=== PATIENT | female | born 2000 | race Caucasian/White ===

== ENCOUNTER 2022-08-19 17:06 | Outpatient (OUT) | payer OTHER, BC, SELFPAY ==
--- NOTE | 2022-08-19 17:16 | XR_ITS ---
The [address] [address] Patient Name: STEVE BOUCHER MRN: [id number] date: 2000 Sex: F Assigned Patient Location: [facility] Current Patient Location: [facility] Accession/Order Number: [id number] Exam Date: 08/19/2022 17:25 Report Date: 08/19/2022 18:47 At the request of: BALAJI THOMPSON Procedure: XR foot LT min 3V EXAM: XR foot LT min 3V HISTORY: Left foot pain M79.672 . Injury in January 2022. COMPARISON: None. TECHNIQUE: 3 views of the left foot were obtained. FINDINGS: There is no evidence of an acute fracture or dislocation. The joint spaces are intact. No significant focal osseous abnormality is identified. No abnormal soft tissue calcification is present. No radiopaque foreign body is identified. XR/XR foot LT min 3V IMPRESSION: No acute fracture or dislocation. The joint spaces are intact and no apparent degenerative changes are present. Electronically authenticated by: FRANCES BRYAN Date: 08/19/2022 18:47
== END 2022-08-19 17:07 | disposition home or self-care (01) ==
PROVIDERS: PCP Family Medicine; Visit Provider Nurse Practitioner Family
DX: M79.672 Pain in left foot (principal)
CPT/HCPCS: 73630

== ENCOUNTER 2023-01-01 08:24 | Outpatient (OUT) | payer OTHER, BC, SELFPAY ==
--- NOTE | 2023-01-01 08:33 | MR_ITS ---
The [place] [id number] Patient Name: STEVE BOUCHER MRN: [id number] date: 2000 Sex: F Assigned Patient Location: MRI Current Patient Location: MRI Accession/Order Number: [id number] Exam Date: 01/01/2023 08:45 Report Date: 01/01/2023 10:20 At the request of: RANDALL MA Procedure: MR ankle LT wo con MR ankle LT wo con, 01/01/2023 8:45 AM EST INDICATION: Achilles Tendon Rupture Left S86.012A COMPARISON: X-ray of the left foot dated 08/19/2022 TECHNIQUE: Multiplanar and multisequential MR images of the left were obtained without contrast . FINDINGS: Muscles and tendons: The flexor and extensor tendons and muscles are unremarkable. No abnormality of the peroneal tendons is noted. Achilles tendon is unremarkable. Bone: There is no bone marrow edema. No osseus lesion is noted. Sinus Tarsi: No abnormality of sinus Tarsi is noted. Plantar fascia: The plantar fascia is unremarkable. Ligaments: The deep and superficial portions of deltoid are unremarkable. The lateral ligaments are unremarkable. The visualized portion of Lisfranc ligament is unremarkable. There is normal intra-articular joint effusion. No soft tissue abnormality is noted. MR/MR ankle LT wo con IMPRESSION: Normal MRI of the left ankle. Electronically authenticated by: JERRY ALMANZAR Date: 01/01/2023 10:20
== END 2023-01-01 08:25 | disposition home or self-care (01) ==
LOC: MRI 08:26
PROVIDERS: PCP Family Medicine
DX: S86.012A Strain of left Achilles tendon, initial encounter (principal)
CPT/HCPCS: 73721

== ENCOUNTER 2023-01-16 07:00 | Outpatient (RCR) | payer OTHER, BC, SELFPAY | END 2023-02-09 07:00 | disposition home or self-care (01) | LOC: PT 07:00 | PROVIDERS: PCP Family Medicine | DX: M76.62 Achilles tendinitis, left leg (principal); M24.572 Contracture, left ankle | CPT/HCPCS: 97110; 97112; 97140; 97161 ==

== ENCOUNTER 2023-02-10 10:04 | Outpatient (RCR) | payer OTHER, SELFPAY | END 2023-04-12 17:03 | disposition home or self-care (01) | LOC: PT 10:04 | PROVIDERS: PCP Family Medicine | DX: M25.572 Pain in left ankle and joints of left foot (principal); M76.62 Achilles tendinitis, left leg; M24.572 Contracture, left ankle | CPT/HCPCS: 20560; 97112; 97140 ==

== ENCOUNTER 2024-08-30 19:37 | Outpatient (REF) | payer OTHER, SELFPAY ==
--- OUTSIDE RECORDS SUMMARY | 2024-08-30 19:42 | XMS_ITS | CCD ---
Author Organization [facility] Care Team Providers Care Business Development Name Role Phone Marry Justin Primary Care Physician Pratibha Jaeger Attending Unavailable Marry Justin Attending Guillermina vailable Marry Justin Attending Guillermina vailable Marry Justin Attending Guillermina vailable Marry Justin Attending Guillermina vailable Pratibha Jaeger Attending Unavailable Pratibha Jaeger Admitting Unavailable Pratibha Jaeger Attending Unavailable Pratibha Jaeger Admitting Unavailable Pratibha Jaeger Attending Unavailable DR TIRSO MORENO Admitting Unavailable JOSH, DR CHAHAL Consulting Unavailable JOSH, DR CHAHAL Attending Unavailable DR CHAUNCEY PAL Consulting Unavailable JOSH, DR CHAHAL Attending Unavailable JOSH, DR CHAHAL Admitting Unavailable DR TIRSO MORENO Consulting Unavailable Iris MALIK, Padmini Hua Primary Care Provider [phone] TIRSO MORENO Attending Unavailable TIRSO MORENO Attending Unavailable Allergies Allergy Classification Reported Allergen(s) Allergy Type Date of Onset Reaction(s) Facility (7 sources) Amoxicillin; Translations: [amoxicillin] Drug Allergy 3 Weal (disorder), [facility] [place] (4 sources) Penicillins Drug Allergy 3 Unknown [facility] Medications Current Medications Medication Drug Class(es) Dates Sig (Normalized) Sig (Original) ethinyl estradiol 0.03 mg / norethindrone acetate 1.5 mg oral tablet (1 source) Estrogen Start: 04-21-2024 End: 04-21-2025 take 1 tablet by mouth once daily norethindrone ac-eth estradio (Carmela 1.30) 1.5-30 MG-MCG tablet tablet Indications: control counseling Take 1 tablet by mouth Daily 21 tablet 11 04/21/2024 04/21/2025 Active ferrous sulfate 325 mg oral tablet (4 sources) take 1 tablet by mouth at mealtime ferrous sulfate 325 (65 Fe) MG tablet Take 325 mg by mouth in the morning. Take with meals. Active Iron Chews (2 sources) Start: 02-16-2021 take 1 mg by mouth once daily Iron Chews mg, Oral, Daily, Refills(s) 0 Start Date: 02/16/21 Status: Ordered Magnesium (3 sources) take 1 capsule by mouth once daily Magnesium 400 MG capsule Take 400 mg by mouth Daily Active Completed/Discontinued Medications Medication Drug Class(es) Dates Sig (Normalized) Sig (Original) cephalexin 500 mg oral capsule (2 sources) Cephalosporin Antibacterial Start: 11-08-2021 take 1 capsule by mouth every eight hours cephalexin 500 mg Cap 21 EA, TAKE 1 CAPSULE BY MOUTH EVERY 8 HOURS FOR 7 DAYS, Refills(s) 0 Start Date: 11/08/21 Status: Ordered Start: 10-30-2021 End: 11-06-2021 take 1 tablet by mouth every eight hours cephalexin 500 mg oral tablet 500 mg = 1 tab(s), Oral, q8hr, X 7 day(s), # 21 tab(s), Refills(s) 0, Pharmacy: [facility]/pharmacy #[id number], 167.3, cm, 10/30/21 13:28:00 EDT, Height/Length Dosing, 73.7, kg, 10/30/21 13:28:00 EDT, Weight Dosing Start Date: 10/30/21 Stop Date: 11/06/21 Status: Ordered Ethinyl Estradiol / Ferrous fumarate / Norethindrone (7 sources) Estrogen Start: 10-20-2023 End: 02-23-2024 Carmela FE 1.5/30 1.5-30 MG-MCG tablet Indications: Uses control TAKE 1 TABLET BY MOUTH EVERY MORNING 28 tablet 12 10/20/2023 02/23/2024 Discontinued Start: 10-20-2023 Carmela FE 1.5/ 30 1.5-30 MG-MCG tablet Indications: Uses control TAKE 1 TABLET BY MOUTH EVERY MORNING 28 tablet 12 10/20/2023 Active Start: 02-16-2021.5 0 oral tablet Refill(s) 0 Start Date: 02/16/21 Status: Ordered norethindrone-et hinyl estradiol (03/01) 1-20 MG-MCG tablet Take 1 tablet by mouth Daily Active spironolactone 50 mg oral tablet (3 sources) Aldosterone Antagonist Start: 06-26-2023 End: 02-23-2024 spironolactone (Aldactone) 50 MG tablet 06/26/2023 02/23/2024 Discontinued sulfacetamide sodium 100 mg/ml topical lotion (3 sources) Sulfonamide Antibacterial Start: 03-18-2023 End: 02-23-2024 sulfacetamide suspension (Klaron) 10 % lotion topical APPLY A THIN LAYER TO FACE DAILY 03/18/2023 02/23/2024 Discontinued Problems Active Problems Problem Classification Problem Date Documented Da te Episodic/Chronic Genitourinary symptoms and ill-defined conditions (4 sources) Dysuria; Translations: [Dysuria] Onset: 10-30-2021 Episodic Menstrual disorders (4 sources) Irregular periods; Translations: [Irregular menstruation, unspecified] Onset: 08-15-2022 08-15-2022 Chronic Mycoses (2 sources) Mycosis; Translations: [Candidiasis, unspecified] 02-23-2024 Episodic Other female genital disorders (4 sources) Unspecified dyspareunia; Translations: [UNSPECIFIED DYSPAREUNIA] Onset: 12-06-2021 Chronic Other female genital disorders (4 sources) Pain in female genitalia on intercourse; Translations: [Unspecified dyspareunia] Onset: 08-15-2022 08-15-2022 Chronic Other nutritional; endocrine; and metabolic disorders (2 sources) Overweight in childhood 04-04-2021 Episodic Other upper respiratory disease (6 sources) Allergic rhinitis; Translations: [Allergic rhinitis, unspecified] Onset: 08-19-2022 03-02-2021 Chronic Otitis media and related conditions (2 sources) Acute right otitis media 03-02-2021 Episodic Unclassified (2 sources) Patient encounter status 04-04-2021 Urinary tract infections (3 sources) Urinary tract infectious disease; Translations: [Urinary tract infection, site not specified] Onset: 10-30-2021 Episodic Past or Other Problems Problem Classification Problem Date Documented Da te Episodic/Chronic Abdominal pain (8 sources) Pelvic and perineal pain; Translations: [Pain in pelvis] Onset: 01-31-2022 Episodic Other skin disorders (4 sources) Eruption; Translations: [Rash and other nonspecific skin eruption] Onset: 08-15-2022 08-15-2022 Episodic Results Test Name Value Interpretation Reference Range Facility US PELVISon 01-31-2022 US PELVIS EXAMINATION: US PELVIS HISTORY: Pelvic and perineal pain COMPARISON: No relevant comparison available. TECHNIQUE: Transabdominal and transvaginal sonographic examination. FINDINGS: UTERUS: Normal size and appearance. Uterus size: 7.1 x 2.1 x 4.4 cm ENDOMETRIUM: Normal homogeneous appearance. Endometrial thickness: 4 mm RIGHT OVARY: Normal size and appearance. Blood flow present within ovary on color Doppler. Ovary size: 3.1 x 1.4 x 2.7 cm LEFT OVARY: Normal size and appearance. Blood flow present within ovary on color Doppler. Ovary size: 3.0 x 1.0 x 3.1 cm CUL-DE-SAC: Unremarkable. No significant free fluid. BLADDER: Unremarkable. OTHER: None. IMPRESSION: 1. Normal pelvic ultrasound. Electronically authenticated by: CHAUNCEY PAL Date: 2022-01-31 17:36 Normal [facility] CHLAMYDIA/GONOCOCCUS LOUIE (SW AB/URINE/PAPon 12-11-2021 Chlamydia trachomatis, LOUIE Negative Normal Negative [facility] Comment on above: Performed By: #### C T/NGNA #### [facility] [address] [address] [address] Deneen Gregorio Neisseria gonorrhoeae, LOUIE Negative Normal Negative [facility] Comment on above: Performed By: #### C T/NGNA #### [facility] [address] [address] [address] Deneen Gregorio Ambulatory Visit Summaryon 1 Ambulatory Visit Summary BENSTEVE PINZON :2000 Visit Date:11/08/2021 Ambulatory Visit Instructions Your Diagnosis Urinary tract infection Tests Performed Urnls Dip Stick Auto w/o Microscopy POC 36418 Your Care Team Attending Physician - Marry Justin MD Primary Care Physician - Marry Justin MD This Is Your Medications List carbonyl iron (Iron Chews) cephalexin (cephalexin 500 mg Cap) ethinyl estradiol-norethindro ne ( oral tablet) Procedures Performed None. What to do next You Need to Schedule the Following Appointments Follow Up with Marry Justin MD When: Comments: Confirm next [facility] Where: Medications What How Much When Instructions New cephalexin (cephalexin 500 mg Cap) 21 EA, TAKE 1 CAPSULE BY MOUTH EVERY 8 HOURS FOR 7 DAYS Unchanged carbonyl iron (Iron Chews) Every day Unchanged ethinyl estradiol-norethindro ne ( oral tablet) Test Results Urnls Dip Stick Auto w/o Microscopy POC 89959 (11/08/2021) Bilirubin Urine Dipstick - Negative Blood Urine Dipstick - Negative Glucose Urine Dipstick - Negative Ketones Urine Dipstick - Negative Leukocytes Urine Dipstick - Negative Nitrite Urine Dipstick - Negative Protein Urine Dipstick - Negative Specific [place] Urine Dipstick - 1.015 Urine Appearance Urine Dipstick - Clear Urine Color Urine Dipstick - Light yellow Urobilinogen Urine Dipstick - Normal 0.2-1 EU/dl pH Urine Dipstick - 6.5 Medications and Immunizations Administered Not Given influenza virus vaccine, inactivated, Postpone due to refusal Allergies amoxicillin (Hives) Problems Ongoing - Any problem that you are currently receiving treatment for. Acute otitis media, right Allergic rhinitis Pediatric body mass index (BMI) of 85th percentile to less than 95th percentile for age Urinary tract infection Well adult exam Normal [facility] Pediatrics Office/Clinic Not janny 11-09-2021 Pediatrics Office/Clinic Note Chief Complaint patient in alone for recheck dysuria per patient is doing a lot better now History of Present Illness Steve is an 20-year-old who presents today for a recheck of dysuria. She was last seen on 10/30/2021. At that time, she was seen for a follow-up UTI. She was still having symptoms and stating it maria when she goes to the bathroom as well as painful intercourse. Later, she stated she had not had any sexual intercourse since her symptoms started 1 month ago. She endorses using condoms. There was no vomiting, back pain, hematuria, or abdominal pain. She was given a course of Keflex for 1 week at her last appointment due to continued symptoms. 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 She had 2 cultures recently on 10/23/2021. She had a positive culture for 35,000 cfu/ml Staphylococcus species, coagulase negative. This grew out to be Staphylococcus saprophyticus. No susceptibility was performed as the organism is susceptible to most agents. A repeat culture on 10/29/2021 showed 10,000 cfu/ml of the same growth, negative for chlamydia and gonorrhea. Today, the patient states she is feeling a lot better now. She started noticing improvement in her symptoms in 2 to 4 days. She completed her course of Keflex on Friday night, 11/05/2021. She denies dysuria, fever, or vomiting. She has not tried to be sexually active because she did not know what the effects would be from it. She states she is comfortable again. She states this was her first UTI and she approximately 2 months of pain. She is having normal bowel movements. Review of Systems CONSTITUTIONAL: Negative for growth problems, fatigue, unexplained fevers, and weight loss. E/N/T: Negative for apparent hearing deficits, chronic nasal congestion, dental problems, and speech problems. RESPIRATORY: Negative for chronic cough, dyspnea, and wheezing. GASTROINTESTINAL: Negative for abdominal pain, constipation, diarrhea, feeding/nutritional problems, and vomiting. GENITOURINARY: Positive for dysuria and increased urinary frequency that has significantly improved with cephalexin Physical Exam Vitals & Measurements T: 36.2 ?C(Temporal Artery) HR: 64(Peripheral) RR: 16 BP: 110/58 HT: 66 in HT: 167.3 cm WT: 73.7 kg WT: 162.14 lb BMI: 26.33 GENERAL: The patient is well developed, well nourished, in no apparent distress. E/N/T: Nose: normal nasal mucosa, septum, turbinates, and sinuses; Lips, Teeth and Gums: normal; Oropharynx: normal mucosa RESPIRATORY: normal respiratory rate and pattern with no distress; GASTROINTESTINAL: normal bowel sounds; no masses or tenderness; no organomegaly no abdominal or inguinal hernia; LYMPHATIC: No enlargement of cervical nodes NEURO: Normal gait. Procedure Urine negative for infection in office. Assessment/Plan An 20-year-old female here today for a recheck of UTI demonstrating improvement with the course of cephalexin. I did discuss ways to decrease the chance of UTI, especially when sexually active and also things that she can do when she starts noticing symptoms of pain and dysuria. I also discussed her negative test results with gonorrhea and chlamydia. She has not yet been so sexually active since the infection. This was her first UTI. 1. Urinary tract infection (N39.0: Urinary tract infection, site not specified) -- Resolved. Orders: Urnls Dip Stick Auto w/o Microscopy POC 55559 ATTESTATION: Documentation services were performed after patient or guardian consented to allow [employer] to record this visit. ROSSANA health and nutrition specialist and provider reviewed before signing. ROSSANA: Kodi Odell Follow-up With When Contact Information Margoth MALIK, Marry BAXTER Additional Instructions: Confirm next [facility] Problem List/Past Medical History Ongoing Acute otitis media, right Allergic rhinitis Dysuria Pediatric body mass index (BMI) of 85th percentile to less than 95th percentile for age Urinary tract infection Well adult exam Historical No qualifying data Procedure/Surgical History None. Medications cephalexin 500 mg Cap Iron Chews, Oral, Daily oral tablet Allergies amoxicillin (Hives) Social History Alcohol - No Risk, 03/02/2021 Tobacco - No Risk, 03/02/2021 Never (less than 100 in lifetime) Tobacco Use:. Never Smokeless Tobacco Use:., 10/30/2021 Family History Hypertension: Grandparent. Immunizations Vaccine Date Status Comments influenza virus vaccine, inactivated - Not Given Postpone due to refusal influenza virus vaccine, inactivated - Not Given Parent Or Guardian Refuses meningococcal conjugate vaccine 09/29/2020 Given meningococcal conjugate vaccine 09/29/2020 Recorded influenza virus vaccine, inactivated 12/16/2016 Recorded influenza virus vaccine, inactivated 12/15/2014 Recorded tetanus toxoid 04/05/2014 Recorded meningococcal conjugate vaccine 04/05/2014 Recorded influenza (more content not included)... Normal [facility] Coding Summary.on 11-05-2021 Coding Summary. CD:[id number] G h0bWw+PGhlYWQ+CA7MMAS wK24qdZYotE9SP8pSIG5Y LXVOEJULBU2LSS4pjZD5J EzyC2SaoiYz VacurYCmPM14WIb9OEZ7h QkrJMrymZ2blQCcP7w3Hu LgRG88aW80BAtlDINxNdG 3LjZpbjsgbWFy O8kwAfGubTQvAge+PHRhY mxlIHdpZHRoPScxMDAlJy YnnTkmWI2eKd9iBPEwCJT vbGxhcHNlOiBj w0vvQHWjLGupXU3zxRkpA 4MteVG1EMGll2f3Up69wH I+ZDVxHSV0aBynYKyqe64 7XgWhf3umYZR7 fOJxWBkeUTB7T90cg3K4P OPkIVEtKTD6pFK6fX6weJ eomfunL0XtsHFmWcV4DFP 4iAMisB8lnGth lcblrU6yVnk+D89RPH7QE JUABY8CJms8S6WdCwndfT I+NN98RTWcEB72sZBtdLD ly1zwsSp1BnKz DREnQHU0tTgeIReqf5LqH LLbY74plFTsk0P9RBIvaX vyvZUrLnCusLM7qP6jMJd nowrop3cmzxhj Cgybg4cyot02dK06G75bI RbxBXSwUDQ4DYPcECEluF nkyp9heR8uWr4+QNrrf4i bk8otkXd3RrJr UOIbtrKkiYzlSBP9e7SkS p98O5EfwKapp7KoYli6px 69zARpk1G5xGU2IVslXZH cjK7nAWexNjA9 ANMeVjQfhN81uZTuNZojT v1yjMnfhMjcVO9kBHRgdf qhYIJhaE3gPQNikJSnqGt bJM9oGJSmbnkc y527MpNhHHP0VHCdpIXiE 4CmwV2zNsBoZWYaJPNyU8 ZnpRFqXXrhF831VNzzAaD 9BOQjmfLpI0Uz PSSzuYbsEuR0z1Y7Zd9Sw 4SchqrdFNM9DIezNEA7Iz I9GyGjNzT2H3YkUap0KUF trWqrPC9uD4Hx GLEdwgxtidbhjVT8LSQkU NPfbF98bFMtARiePp1hg7 Z3l674OZKsVESvkD81Zq0 udDogMTBwdCBU zM2wsxulh9tcacxuYfQeV SNcEVx8SRx1NGPnuDbaBf MrRQN2OoI5RZS2lTWggJ8 bqIdcaxqekZ0d Oyc+V76ozC1kGQZ1HAM0q krtXOCjhoKsPW47GY08Q4 RyPjwvdGFibGU+PGRpdiB iqVidAO4gOrZe f5slw2FpXZqaG8KlYXYqP HrtLlo6BTQtROX5aXU7aD 2uURJxIHqvi2I9tAR6T1Q gwkJhqy9mu0hx WUMuRGkgZ40orUFua6K4S OBalKE0ZNHnvPjiPiFxdK 93Oyc+NROtsYerm6LkMad wy8sov1bqxAv7 YsAgLCRmmlXrgSjiLWI5a 3FjBf25V07qULtjCONnFV IqRGLaRGWqqLdwvv2iyU1 wIi8+PGNvbCB3 kTP1iB1wDFDtIfI0MUnkE 743OrCafFMiJcfge5imx1 olwBi2QtCaPEDrvlXyuYr iWWB7g4NwXf56 P76nNAeqYLGtVBXsZNKrS WDdjUgear1isC5rUz4+PC 1cm5gvfv67fG26qQW+PHR zVFN1pIojSJlh KUWjgP7wWYsbWuA6MGVrK vOubS11yFEoKTkiSw7tkH womRdkQX7tDCYneeqey72 2LjCsg1cpJZSn nAQhKKmgALA5G89nk6K0W EBbLXScBEC3cHU0rW5prS lnbjogbGVmdDsgdmVydGl zSDdfHCgsW529 IHRvcDsnPlBhdGllbnQgT sVnQOg9P1RoSzs3KBTlbZ bwDW0joQOmRQqrSf4mdOu qiRxhHJ6wAHSu ppany726YzFgo4hgCESne LGtWEiqQKG6T22xy6R4JG ScAGGuZIL1hHB3uG3tbPn nbjogbGVmdDsg jbGjhXazFNdmRFzkJ913Y HRvcDsnPkJpcnRoIERhdG U9ZC66BG00lQAil0N9iUG 9D8ZzVXTcgsng zllgxMR5KAHhEQPubA04Q l3wxOlaUa1fKBKlHSB1HU RpfWSaF7PebA2aIjKgAVW hAOByM8HafJZy QUsiV543GEvkRlW1KUExt dYzS5OgKQVklBndXrU9z6 L5Xl0MP6S5CN05HH62dLP iq4N6nYP6H6Af XFRfuumhdkoqsTY5XWUbQ RTopQ05Me0kdWhnKb9iDV YfFVP4CXUttZJpX4QczY2 yOiAjMDAwMDAw E5BdcWJtVMpaV948DYrkE gU6IXQpwrFnG2HnKXZejW akLrL1t5U6Kd1GOAo6LX3 0VY21qIQxf1N5 zTH9Y0CnLUUsmyajnjsxp PW6HOSeRYKndX01Ui1ndY juDp5aBLGjPYL6YNIqmDG bQ8BqzU0oOrKo FKZtOWOiR1OteJReGJcfO 671MVeuApK9KFRadrUzP0 XuHRBniXvpXkG9r2E7Ze6 QIDBkPW50FQI0 aTK5UM42WT67U2XtZpjav GFibGU+PHRhYmxlIHdpZH RoPScxMDAlJyBzdHlsZT0 lPw9xZNVeHMPw nZyipHDzCkInl0xkSUAwN OvsMQ9khBeyV2PbcEQ6NS Lol3r7Ea46R24oW6UugHR +QZSreVK0aEG0 tW1rMnHwYqX6BOnkH291L mMblXBzHsvhd3rgw9ucfC l5DhD9QTJrexYrkMsrMXT 3c7HlFp95K55z IHdpZHRoPSIxNSUiIHZhb Oronf6heJ8zYy4+PGNvbC V6kFY0mB0tStMeXhW6YZo qC750KnFbiDHh Qjuwr0wmq7zdeXf7ZbRxI NIglcHooWspATC4v3SkWs 25M9VuuNlfy1ClTdt3pk3 9pMOqg9J2zIN7 Q7ChWGLvkdxefYBjhOcjF Q7cAWVnvgurGRYhhD1gDQ HnE8d9FsVvIjW3UHhzA1T prfD5TBIpfTNs KAcxOJC7P41yi6A6EJOyJ YOeGYZ4wDT0zO9lqXurtc ogbGVmdDsgdmVydGljYWw aEXllM754VYMr yFvqWSYycN8fSEDceJScj WtoQY1kTXCvnhkjSxCMWM DHCS1cVT5MN6GPCwA2A8S fOcq5WGDwyQom OQ9sfVGdOTdbJc8ibGyyv EmjZO2zBIIlxfxzWHPpbP 4hBZBcpTKafHhlIO1mCQD giisul832SjVo MGR1VPFqdRCqK2FtbR4cE xCqBAXaEZZyM4YaiHPxEI kvV191QHpoRdQ8QCJwjzQ eC3LwUFWhgXsg UfA0k1T6Qj5fDV6fRX4uN NTxQB26DW83nUSaf0W8bC Y7O2SeEYRtjyanegaxiJH 5CZOhEYVvxR39 kKRtNNipIf3qo0W0t060H RTiWAXssY53Pw1otWumHP ZdaXHKiP8eqlibo9nyuee gIzAwMDAwMDt0 KZa5XNZcrJoxHiSvCLD4Z hZ9HVQ8uYKbkK7wbNhiko rgyI4tMhf+MTggWWVhcnM 8Z9UtXcw9HXYr gQtsFV3kaOVvPCnuXq1bq IuhuPybFV5wHNCkhdavHT FawE4xNTYnuOTozSckSF4 aTPXgflyus635 TgGuMIH4BSBarPFdC4Qzf N1vSbCkJZHqMUJtI0IxyT OsGKbrP142BXrhOoA9JIW hhqOhL9EbOLSi wUufZnF7e1D4Xh5XFE8jd RZ0R5FwQks3GQAvqPcvLR 6gsQUzRRflFt8bzDfdvGs aKW4vPIBmreyx CVWisD1wVQLghMAeaTfwN K9yKBEkpyrfx189WmQnHC W6IQFjnPOnS2FjwY2gOvW aOWEpGQVzZ7Mp aADzOMspO693OAxbMhA0P NRphgFrA0QpGFNshJybIw N6g6F7Sv5CbTLjWFQoUX1 4XL91ND45V1Dc PjwvdGFibGU+PHRhYmxlI HdpZHRoPScxMDAlJyBzdH nfGS7hGn3rEZRoLOPgtZy rkUFaNyAto6kd GRHzPDbwUZ0gdWuyI0Cyk OS9ATOhm7i2Tz63X66wB0 JvdXA+VXMckZC1cZX1bK0 fTxNoBhL8OTnu X888QkRydHYbHcoup0ebz 0sbhZo1WnIsPBZermJxyP afRLG4k4UvRf98Y30uDNm pZHRoPSIyMCUi KTTzlHlmfd0agV8oDi0+P KZlaWE7zGJ8nC4nOsByZm W9VWelA489CeAfoYTbIey mW76nP9QllPK+ JQWlWcm3TFBppRigSI8jr TCsVJuzZa1dRCF1YzYoWw ThRSarE9TqMQFnbqjolxn adYA2RPKfXCHa pU85Fd4wbSlpXo0iBEDtR FX0BTYttEYuY6JriR9sFz TmWBTiFIQpG4DlcORmGNq eJ587TFpoCtB0 DHCunrFoI5SnYZVmcUxuL aL9k0K8Ze7FoKoqlYOaJF 2iLkGmEOo1S4IiZvz0USF lwLabLQ3plKAu LHnhQw3akTgwtJxaNX8cD KRkuzrkt180UfFji6oiPY MpsLNzAXqoUFK1I89vz1F 3JJAzWNVjCAW8 aNC5eP1xjHrxzqdaiZEzb DsgdmVydGljYWwtYWxpZ2 81XCLdkXzgAoKKNmh5D4J bCce6WSYdqHbv GT6ivYQiRYdaSt4dkKzya NorBZ8pHQDqxkolt420Hm Hzh5ooZRPhwJCnELgnUER 1T02jr3A2QTJy UMVjILM1aJZ8jC0ieEtmy jogbGVmdDsgdmVydGljYW etWPxjE415BVWgwBmeMr1 USls8U3DoUlf1 LEFkvRbzPS6pzUMtOJplI o7aqMqzmXfvHT8eVQMbae mmo951QbXib5qoKDMgkWQ kRMwfOEX6B16o l1H4RFItVMWvNAG1aVI9t H8hdIldbarvdSBktXyfhq IedNllDXxwSYizU785JFN vcDsnPlBheWVy OjwvdGQ+EJ52gi02P7EeB bdbZwl8XQCeDJM0lZI2fN 3lFZBgWBoua3Z1jIZ6H9J kuqYzwu5ny6zg YXBz (more content not included)... Normal [facility] C Urineon 10-31-2021 Bacteria identified Cx Nom (U) Microbiology PROCEDURE: Urine Culture [R1] SOURCE: U CleanCatch BODY SITE: COLLECTED DATE/TIME: 10/29/2021 09:11 EDT RECEIVED DATE/TIME: 10/29/2021 10:11 EDT START DATE/TIME: 10/29/2021 10:11 EDT FREE TEXT SOURCE: Mil WEST, Pratibha Marroquin. Mil WEST, Pratibha Marroquin. FINAL REPORTS Final Report [] Verified Date/Time: 10/31/2021 11:04 EDT 10,000 cfu/ml Staphylococcus saprophyticus isolated. Susceptibility testing no longer performed. This organism susceptible to most agents used for UTI treatment per CLSI [id number]. Performing Locations R1: This test was performed at: [facility], [address] [place] [address], [id number] , , Normal [facility] Comment on above: Performed By: #### [id number] ####[address] [address] Chlamydia/Gonococcus, NAAon 10-31-2021 C. trachomatis rRNA LOUIE+probe Ql (Unsp spec) Negative Invalid Interpretation Code Negative [facility] Comment on above: Performed By: #### 1 [id number] ####[facility] [id number] [place] [id number] N. gonorrhoeae rRNA LOUIE+probe Ql (Unsp spec) Negative Invalid Interpretation Code Negative [facility] Comment on above: Result Comment: Perf ormed at: =G [facility] [address] [place] [id number] MD Ashley Guerra Performed By: #### 1 [id number] ####[address] [address] Patient Educationon 10-31-19 Patient Education Urology Dysuria Dysuria is pain or discomfort while urinating. The pain or discomfort may be felt in the part of your body that drains urine from the bladder (urethra) or in the surrounding tissue of the genitals. The pain may also be felt in the groin area, lower abdomen, or lower back. You may have to urinate frequently or have the sudden feeling that you have to urinate (urgency). Dysuria can affect both men and women, but it is more common in women. Dysuria can be caused by many different things, including: ? Urinary tract infection. ? Kidney stones or bladder stones. ? Certain sexually transmitted infections (STIs), such as chlamydia. ? Dehydration. ? Inflammation of the tissues of the vagina. ? Use of certain medicines. ? Use of certain soaps or scented products that cause irritation. Follow these instructions at home: General instructions ? Watch your condition for any changes. ? Urinate often. Avoid holding urine for long periods of time. ? After a bowel movement or urination, women should cleanse from front to back, using each tissue only once. ? Urinate after sexual intercourse. ? Keep all follow-up visits as told by your health care provider. This is important. ? If you had any tests done to find the cause of dysuria, it is up to you to get your test results. Ask your health care provider, or the department that is doing the test, when your results will be ready. Eating and drinking ? Drink enough fluid to keep your urine pale yellow. ? Avoid caffeine, tea, and alcohol. They can irritate the bladder and make dysuria worse. In men, alcohol may irritate the prostate. Medicines ? Take [id number] and prescription medicines only as told by your health care provider. ? If you were prescribed an antibiotic medicine, take it as told by your health care provider. Do not stop taking the antibiotic even if you start to feel better. Contact a health care provider if: ? You have a fever. ? You develop pain in your back or sides. ? You have nausea or vomiting. ? You have blood in your urine. ? You are not urinating as often as you usually do. Get help right away if: ? Your pain is severe and not relieved with medicines. ? You cannot eat or drink without vomiting. ? You are confused. ? You have a rapid heartbeat while at rest. ? You have shaking or chills. ? You feel extremely weak. Summary ? Dysuria is pain or discomfort while urinating. Many different conditions can lead to dysuria. ? If you have dysuria, you may have to urinate frequently or have the sudden feeling that you have to urinate (urgency). ? Watch your condition for any changes. Keep all follow-up visits as told by your health care provider. ? Make sure that you urinate often and drink enough fluid to keep your urine pale yellow. This information is not intended to replace advice given to you by your health care provider. Make sure you discuss any questions you have with your health care provider. Document Released: 10/25/2004 Document Revised: 01/09/2018 Document Reviewed: 11/13/2017 [employer] Patient Education ? 2019 [employer]. [facility] Pediatrics Office/Clinic Not janny 10-30-2021 Pediatrics Office/Clinic Note Chief Complaint Pt in office to f/u UTI. Pt still having symptoms. Pt says it maria when she goes and frequency also painful intercourse. Pt went to [facility] yesterday and gave a urine sample History of Present Illness For this visit the chief historian for this dependent patient is the patient themself. Steve Perez is an 20-year-old female who presents for recheck of dysuria. She was seen in office on 10/23/2021, noted that she had dysuria, increased frequency of urination and painful intercourse. The patient states that her symptoms have not had much improvement. She is still experiencing dysuria and increased urination. She notes she has not had any sexual intercourse since her symptoms started about 1 month ago. She does use condoms during sexual intercourse. She notes she did decrease her caffeine intake; however, it has not made a difference. She is eating and drinking well. She denies vomiting, back pain, hematuria, or abdominal pain. She states she has really heavy menstrual cycle, which is why she is on control. She notes she was waiting to get her results back before she makes an appointment to see her OBGYN, Dr. Moreno. Steve is allergic to AMOXICILLIN. She is currently taking iron chews, control, and Zyrtec as needed. She has no ongoing chronic health issues or no surgical history. Review of Systems CONSTITUTIONAL: Negative for growth problems, fatigue, unexplained fevers, and weight loss. E/N/T: Negative for apparent hearing deficits, chronic nasal congestion, dental problems, and speech problems. RESPIRATORY: Negative for chronic cough, dyspnea, exposure to tuberculosis, and wheezing. GASTROINTESTINAL: Negative for abdominal pain, constipation, diarrhea, feeding/nutritional problems, and vomiting. GENITOURINARY: Positive for dysuria and increased urinary frequency. Physical Exam Vitals & Measurements T: 36.3 ?C(Temporal Artery) HR: 78(Peripheral) RR: 18 BP: 108/72 HT: 66 in HT: 167.3 cm WT: 73.7 kg WT: 162.14 lb BMI: 26.33 GENERAL: The patient is well developed, well nourished, in no apparent distress. E/N/T: external auditory canals normal; Nose: normal nasal mucosa, septum, turbinates, and sinuses; Lips, Teeth and Gums: normal; Oropharynx: normal mucosa, palate, and posterior pharynx; RESPIRATORY: normal respiratory rate and pattern with no distress; normal breath sounds with no rales, rhonchi, wheezes or rubs; CARDIOVASCULAR: normal rate and rhythm without murmurs; normal S1 and S2 heart sounds with no S3, S4, rubs, or clicks;; GASTROINTESTINAL: normal bowel sounds; no masses or tenderness; no organomegaly no abdominal or inguinal hernia; LYMPHATIC: No enlargement of cervical nodes GENITOURINARY: No CVA tenderness on examination. Assessment/Plan 1. Dysuria (R30.0: Dysuria) Steve continues to have painful urination and increased urinary frequency. I did discuss with her the culture results showing a decrease in the amount of bacteria. Steve notes that she has been having these symptoms for ongoing for about a month now. Shared decision making offered to patient. I did discuss with her that we could trial an antibiotic; however, with the amount of bacteria in her urine, it is not necessarily needed. Steve notes that she is uncomfortable with her symptoms and wants to see if there is improvement with an antibiotic. I have prescribed Keflex to be given 1 tablet every 8 hours for 1 week. If she develops fever or worsening symptoms or any blood in the urine, I advised her to call our office. I would like to see her back in 1 week for a recheck of this. I discussed with her also that gonorrhea and chlamydia testing are pending. We discussed that if she continues to have painful intercourse, she would need to be seen by her OBGYN to potentially have a pelvic exam. Steve verbalized understanding. I advised her to continue to avoid excessive caffeine intake and to drink plenty of water to stay hydrated. Ordered: cephalexin, 500 mg = 1 tab(s), Oral, q8hr, X 7 day(s), # 21 tab(s), Refills(s) 0, Pharmacy: [facility]/pharmacy #[id number], 167.3, cm, 10/30/21 13:28:00 EDT, Height/Length Dosing, 73.7, kg, 10/30/21 13:28:00 EDT, Weight Dosing Urine Culture 2. Urinary tract infection (N39.0: Urinary tract infection, site not specified) See problem #1. Ordered: cephalexin, 500 mg = 1 tab(s), Oral, q8hr, X 7 day(s), # 21 tab(s), Refills(s) 0, Pharmacy: [facility]/pharmacy #[id number], 167.3, cm, 10/30/21 13:28:00 EDT, Height/Length Dosing, 73.7, kg, 10/30/21 13:28:00 EDT, Weight Dosing ATTESTATION Documentation services were performed after patient or guardian consented to allow Yan Kenrick Mckinney to record this visit. ROSSANA health and nutrition specialist and provider reviewed before signing. ROSSANA: Alexia Cain Follow-up With When Contact Information Margoth MALIK, Marry BAXTER In 1 week Additional Instructions: recheck dysuria Patient Education Dysuria Problem List/Past Medical History Ongoing Acute otitis media, right Allergi (more content not included)... Normal [facility] Consent for Treatmenton 10-11 Consent for Treatment [id number]:[id number] Normal [facility] C Urineon 10-25-2021 Bacteria identified Cx Nom (U) Microbiology PROCEDURE: Urine Culture [R1] SOURCE: U Random BODY SITE: COLLECTED DATE/TIME: 10/23/2021 13:48 EDT RECEIVED DATE/TIME: 10/23/2021 15:41 EDT START DATE/TIME: 10/23/2021 15:41 EDT FREE TEXT SOURCE: Pratibha Salazar. Mil WEST, Pratibha Marroquin. FINAL REPORTS Final Report [] Verified Date/Time: 10/25/2021 16:37 EDT 35,000 cfu/ml Staphylococcus saprophyticus Susceptibility testing no longer performed. This organism susceptible to most agents used for UTI treatment per CLSI R808-K93. Performing Locations R1: This test was performed at: [facility], [address] [place] [address], [facility] , , [facility] Comment on above: Performed By: #### [id number] ####[facility] [id number] [place] [address] Coding Summary.on 10-24-2021 Coding Summary. CD:[id number] G h0bWw+PGhlYWQ+LD5FYYU zX88neJZgnJ4GR7bGUQ3P RGTYMLFSKC5LAO0drQR9X IajN4HplvLf ZswjwJOrYR20NRg4KII0c GypYOkxwN1mqYWdC8x8Mm KjXL44nA70HYybQTNhRkU 3LjZpbjsgbWFy J8rxFiWwxJXjPgk+PHRhY mxlIHdpZHRoPScxMDAlJy QahLcyPH6sBu4uJRMuYZC vbGxhcHNlOiBj w6oeBMToJDnsCK9tkErfM 4TssKE5NGNhs9o3Kv38kK I+JVEoTSO8mRghXGgwb55 5CpGbi4tuZPO5 pSTzVScmFKO4Q19la5J2F JLuLRYmZCE6fFN5mI2dtD yhnkurN4MljEUnClF7YCM 9oVDgfH9efRix yeuflF9zGwq+K11XDY2AQ VEPOA4HCwq7N1WhXptfvP I+LS13GMNiBR48zIXbbDF pj6mprKi0SuSr WCEvJDF1vCvrDJadm8WqF MTrZ60czHVxd7E3KRXgiY mnrPOwNpQcvBU8eU6bKKp uecprf4tikiqs Zjyma3jrmy08aQ15G55hJ NmlETXbATQ9ROOrXWThyZ tnsl7bwD2lAp9+CFtkc7g ha3jszNr1RiSg AGClzeSmiXgqQGX6t1RjI z57S8YqmMofa2RzZpm9my 20fOTvl6K4cZY1AIhnPWZ trH1rAKbxRyO9 KUToIgWucI03oQUdJOcrW n9kcLfgcSkaLZ3sHLTtvz pyRYJndF6gHAPfvWYimWa zDF8xBUJebagv d658EgJhMOU5VNSpxGKmW 6JhcT9mBtZyLBCyXJVwS2 TtlCHnVFahM235ABduRgX 3HSSjtlOdE1Cm OSSnfGozBtQ9m6H1Oi6Vg 6JyeadpWBU5NWehDUS4Zb T3OuElHfD3O0UiFkb3TCK ueTlvYK3bE5Hd JMCmvhdvhamnyIU2UMXkL PFluE02lXPzKUavQx1lq9 V6f119YEArERAyqL52Pj3 udDogMTBwdCBU pS4yovdai4gudetiWvFbD WCvWLa5CRe2KEXtjAujFn SmKIE8WvI2PWQ8fTUrsI0 enSrnkveybC1j Oyc+X79ysR2gLQQ9GWG3k ntkEZPgisRkIE83BB51M2 RyPjwvdGFibGU+PGRpdiB zyAghEB9hSsEy o7fhd6JjGVuwL1UiXWScE SdsQnj0OGEvDLP2vBH9dY 8sLZYqBIseh4A7iEX5G4F kicAqps4do0rx HAAfILdzI80eiGCvw8W4I GJdmWI1YGMciLmeKjDodI 93Oyc+XKOnrYaqt8AnTqb yb6edh0bihLr8 IkKeRKZwlwSqwTpcSFQ9z 9PuNz03B00wCZveBSUnSV ChIHLnIIDqmCiyug4fsA2 wIi8+PGNvbCB3 tMN0kT4pQNHlYvD4KXayG 386YdZolJBbGjyxl8jvc2 vyoPg1ToIkVSXdybJxeKr pETX5a9ZwWf43 V59gXRylYPDqULTrJJRxV EZmeCfrgd8vzH9oBa4+PC 6zd0gtxt89jN53oEE+PHR yLOQ5uSqiLEnp LGOhyZ9mDNbqLmP0QJCeJ sEbcH88hYAbHHvhNa1elF fhbZivIX5uHDBgecwgc24 2WbJtc6upMCBe gBMeWZpyWDE8F17vt4X7A WLdGYZsDZJ7cAR5fK6czM lnbjogbGVmdDsgdmVydGl kDUcbXMhnR524 IHRvcDsnPlBhdGllbnQgT aHnXBm2K5MdClb8OTNqxY qdHZ0svXAqPHnkLz7vaMi hlFobQD2xOIYx xbnro917NfOya0isUPAzr WOsHSqaIVV2Y87jo8B0KM MvPQXzOVU7kNL8rM5lvWe nbjogbGVmdDsg ryRaoCseIJlwGMngO626X HRvcDsnPkJpcnRoIERhdG H9IX93XK01hMCpc2A8rAU 0J5RnAVEvvbym ngmjrQS7NHDjAUCnwS85I m1zmAuxPj6gPYQzECD9YI IkcIBcH1CctH2wSjIyRGJ gLATmI3UghXUm DXebB367QXpcJjN6XGApt vBqI4YlOAPfiUjgShM6g5 Q2Bt3WI5L9LP86SN06gFE xi9V1tGF9F7Vv BUYqxlyuidqgkLC9TIUdC WMuwQ63Cj8wkWumKp9mNO OxKTQ9NXUunRWiS5CceQ1 yOiAjMDAwMDAw J1QgbEKiYCacM585DFurR aJ1KRCyjkKgB4NpETQzbK coXwC1q6Z9Jh2BGVe9AZ6 0LF66xHDer8B1 qMT0R0JeIMXjdubssklez IK3VTUvSFOeyV63Mx9pbL vuXb9xNEPfERH4HZPxeCQ bN9BwrS4kZtNm YCOwAJByG3RlzZRdHSdjB 929ADmdIgO4KKZbwpLfV6 MaTFLhgTcxPeZ8b5V7Zq7 GJPRzHN45XGN7 zYO7GF63QX18B0KgOuugf GFibGU+PHRhYmxlIHdpZH RoPScxMDAlJyBzdHlsZT0 qJo1rKORuJJVp eBhbfKMhMxBhx8xyDUKzR XmzGR1drRgkU1AckDO7EW Owb6h6Yt79W23oG8MxgMR +HNMbvSD1xYJ8 jE5nHwPwTtC1ROenQ403D eRygGGzOblfp5jac7rvyD r5GwK8JLBulcBrqOmbYPD 4z4ZoJy73Y31j IHdpZHRoPSIxNSUiIHZhb Jbvfc4cmX1mMf5+PGNvbC Z8vVK1gE3lKqMjDdA7QYj xO959ZcAusNMg Qoghh6xsb2iopTa5XgReO HIxjkWxfRjsJOR5r8HxEz 91S4VeeMdtn9GtSby6ez4 7yDZsq2B4aZU9 X3ReXIFaxlqqkJRmlXxzI R1nPFOfdwqxCEAwgA9iAJ ItT7d2TuTeJaB1URluS7W affS8KBUndDFi GFduBRV1Y49pj8Q4GLYgI QArNXO1qBC5aM1tgOkzkw ogbGVmdDsgdmVydGljYWw pNEpeN421GMTz iTgaHFAwmY6qDSPjqPWoq DqlCF2wIXTbhlwyEoQZJV ZBCJ5tPZ4BO6TCQnJ1G8M lCkm2HZMliQjy TJ5maRFdEFhzVv3ktUkny WwbGZ2eSYPaqcrmTFQrbA 4bURBuiPVvwGyjGZ2bLHL juzbud715OcFa ARQ8AFWtnEMxQ9XrdN7iE qJiBPTlWQLbZ5VaqULeJB cpI827YFfgShB7CGRmrlH lE1XrDRRgbJqg YmR0u3M3Cp9oWZ4cAB6vE YCeAT63RG14bXLvk8Q3fR K0P2BhHQUgoifdqkpbbQF 5LRMvKWYenO87 wKJnMChoNn5kd0Y5k463E NLhWDRuoI05Iz6sdIzuDP ThpPMZsP6oiigzi3shjor gIzAwMDAwMDt0 MGi9BGXkaJnfUrUoZME0D fG0BHN7wWTwhU4hnVtynf grsM8wLhd+MTggWWVhcnM 7U0EmZyp3QUSk fOgvZK4qtYOqQWsgSk0bz VivoGiwXS4zTCJnqbcvXT DxaA5iJKMwnOGqpPtrMB2 pEWMajgsrh848 GiGbETR0PXWzkXSeI8Wrw U4lRfXgAVNpUZVmU5BvvK KcLEslE721WKzfZuH1GTH whmNaR7MbVGKt pZfoDzF1p6W9Sg1AGG0mf NQ9A9VnXxr8KITeoIulJM 7yhHFsEOziJn4vcKssbZt qFH3wVKVxvjwr PWQhbT4sJZGcsXYdhBijX K9xYTMeofuyq161ZpScLH A3BOYfrJWaI4TckM8rFuP uXDNaSQWzC8Vk vZFmFGmrK354SNwoKfP4D GFjaiEbH3ZpSQDthPnrUj O7o2M1Tv8MBMMfDNVglOB kCqL0W3RcMmsk dHI+SE56YXZyTQ17aNVjn VKko8mktPx1HuPxCUKdLX A2wFoxFGevg1SzQZDhE25 sjYTtq8X2WZIj zTckeYMsKuWltBX6dD4gV Ttpdoijv4owbwcrHwqxl6 ymiu70oS68W05uWFxnVXG oPSIzMCUiIHZh bVzher7eiB2pTw8+PGNvb XF4lRM1yQ9tHbFrPiI7JR fbW567EfZpmOCvQxbbz3i sd3tpnZe5XxPv OZWkdsGevIdbYOM5x2EmN r53S22dIIzeKGYuMUWvXP HkVHMzgBfxwb9gbX9rFg3 +UG2hh1gxvb78 xY61fJI+WBXaDFK5tYvwG PztNRFnzB5pSMvhVeX9IX PkKiThjH80vINuTUwbIc7 mgHoszMpeZN7b BUQghftkj791InBtc9wyN ULpuLEkLCcuKEM9Z05gu1 V0BXLqTGEbNGP6mDF8bC5 hbGlnbjogbGVm dDsgdmVydGljYWwtYWxpZ 069XKHfnIajIeIbcAVuS9 gywnOPZM6oFtghdTZ+PHR kHUY9fXtqXMuh DCVhsI8bGYYlN4f0OqUtY eI4UDdxQ3JcwmJ2TOIeoD EsVODpcMAIzX8caeaoc7b vcjogIzAwMDAw VNt3FFa8SXJxuKvtXqZhR CQ5JfR1AJF1dPCmiJ3cvA eupurnvR2rGio+RklOOjw vdGQ+PHRkIHN0 eZdpEJytVUNzuM2vCHCxE 6g3MrAbGvN7ULfwS2Ddcp K6INPncCHeRKDooMTOeO4 rkofwa8svebhn KbUvQEClUWa7GEr8FABll UmkNmDvUWW6IgV7AXN9qR HbtL6hmKxsmvemeM9hGmc +TVJOOjwvdGQ+ FONxATD2qYceRXujFNLkj V6uVOEzV9l7JjMpMuD1FO yfW0DpljY6UCExbGQxQBN lbKDTjW7bpcct a3aarlgmUtNiZEDeJSq9S Yw6VBVxhXgaLbNxNBC2Ve O7YJK3fKNljN6alLfmjij smL4mNvf+UGF5 FXK0NI55TL74H9KjTnnep GFibGU+PHRhYmxlIHdpZH RoPScxMDAlJyBzdHlsZT0 lBf7yEBGyAEMz bGxh (more content not included)... Normal [facility] Ambulatory Visit Summaryon 0 10-23-2021 Ambulatory Visit Summary STEVE PEREZ :2000 Visit Date:10/23/2021 Ambulatory Visit Instructions Your Diagnosis Dysuria Tests Performed Urnls Dip Stick Auto w/o Microscopy POC [id number] Your Care Team Attending Physician - Pratibha Salazar Primary Care Physician - Margoth MALIK, Marry BAXTER This Is Your Medications List carbonyl iron (Iron Chews) ethinyl estradiol-norethindro ne (.07/09 oral tablet) Procedures Performed None. Discharge Vitals Temperature (Temporal Artery) 36.8 ?C Heart Rate (Peripheral) 78 Respiratory Rate 16 Blood Pressure 110/68 Height 167.3 cm Height 167.3 cm Weight 73.8 kg Weight 73.8 kg BMI 26.37 What to do next Scheduled Follow-Up Appointments Friday 1:40 PM EDT With: Pratibha Salazar Where: [facility] [place] Normal [facility] Patient Educationon 10-24-19 Patient Education Urology Dysuria Dysuria is pain or discomfort while urinating. The pain or discomfort may be felt in the part of your body that drains urine from the bladder (urethra) or in the surrounding tissue of the genitals. The pain may also be felt in the groin area, lower abdomen, or lower back. You may have to urinate frequently or have the sudden feeling that you have to urinate (urgency). Dysuria can affect both men and women, but it is more common in women. Dysuria can be caused by many different things, including: ? Urinary tract infection. ? Kidney stones or bladder stones. ? Certain sexually transmitted infections (STIs), such as chlamydia. ? Dehydration. ? Inflammation of the tissues of the vagina. ? Use of certain medicines. ? Use of certain soaps or scented products that cause irritation. Follow these instructions at home: General instructions ? Watch your condition for any changes. ? Urinate often. Avoid holding urine for long periods of time. ? After a bowel movement or urination, women should cleanse from front to back, using each tissue only once. ? Urinate after sexual intercourse. ? Keep all follow-up visits as told by your health care provider. This is important. ? If you had any tests done to find the cause of dysuria, it is up to you to get your test results. Ask your health care provider, or the department that is doing the test, when your results will be ready. Eating and drinking ? Drink enough fluid to keep your urine pale yellow. ? Avoid caffeine, tea, and alcohol. They can irritate the bladder and make dysuria worse. In men, alcohol may irritate the prostate. Medicines ? Take sysq-znu-vknzypv and prescription medicines only as told by your health care provider. ? If you were prescribed an antibiotic medicine, take it as told by your health care provider. Do not stop taking the antibiotic even if you start to feel better. Contact a health care provider if: ? You have a fever. ? You develop pain in your back or sides. ? You have nausea or vomiting. ? You have blood in your urine. ? You are not urinating as often as you usually do. Get help right away if: ? Your pain is severe and not relieved with medicines. ? You cannot eat or drink without vomiting. ? You are confused. ? You have a rapid heartbeat while at rest. ? You have shaking or chills. ? You feel extremely weak. Summary ? Dysuria is pain or discomfort while urinating. Many different conditions can lead to dysuria. ? If you have dysuria, you may have to urinate frequently or have the sudden feeling that you have to urinate (urgency). ? Watch your condition for any changes. Keep all follow-up visits as told by your health care provider. ? Make sure that you urinate often and drink enough fluid to keep your urine pale yellow. This information is not intended to replace advice given to you by your health care provider. Make sure you discuss any questions you have with your health care provider. Document Released: 10/25/2004 Document Revised: 01/09/2018 Document Reviewed: 11/13/2017 [email or web address] Patient Education ? 2019 [employer]. [facility] Pediatrics Sensitive Noteon 10-23-2021 Pediatrics Sensitive Note Chief Complaint Pt in office today for frequent urination, burning and uncomfortable. pt states she is sexually active and intercourse hurts. History of Present Illness For this visit the chief historian for this dependent patient is the patient themself. Steve Perez is an 20-year-old female who presents today for dysuria and increased urination. A urine dipstick was performed in office and she did have a small amount of leukocytes. The patient states that her symptoms onset about 1 month ago. She notes that initially her only symptom was dysuria; however, she states that she is sexually active and has started experiencing pain during intercourse. The patient reports that she has not had sex in about a month due to the discomfort. She notes that her symptoms seem to have worsened and notes constant discomfort now, not just when voiding. The patient states that she has tried using AZO Urinary Pain Relief, drinking a lot of water, and cranberry juice and reports temporary relief of symptoms; however, she notes that her symptoms returned about a week after finishing the AZO, which was about 1 to 1.5 weeks ago. She notes that initially she felt the urge to void about every 10 to 20 minutes; however, she states that it has improved some and she feels the urge to void about once an hour now. She denies any fevers, rashes, abdominal pain, hematuria, vaginal itching, nausea, or vomiting. The patient endorses back pain but only when she is menstruating. She notes that her last menstrual cycle was about 3 weeks ago. The patient endorses using condoms as well as control. She states that she has been with her partner for about 9 months and states that they have been sexually active for about 6 to 7 months now. They are sexually active only with each other. The patient reports a normal amount of white vaginal discharge and denies any foul odor to it. She notes a color and odor change to her vaginal discharge while she was on AZO; however, she notes that those were listed side effects. The patient denies prior history of a UTI. Her partner does not have any symptoms. The patient is eating and drinking normally, and she endorses drinking a lot of caffeine. The patient reports having a bowel movement at least once a day, usually 2 to 3 times a day. She endorses soft stools and denies constipation. The patient notes that she tries not to hold her urine; however, she states she is not always able to go when she needs to, at all 3 of her jobs. The patient reports seeing Dr. Jono Levin for her control up until 04/2021, when she started seeing Dr. Tirso Moreno. She notes that she last saw him on 04/2021. The patient states that she called Dr. Moreno first and was instructed to see her primary doctor for her urinary symptoms. Steve is allergic to AMOXICILLIN. She is currently taking iron, control, and Zyrtec as needed. PMH and PSH are negative. Review of Systems CONSTITUTIONAL: Negative for growth problems, fatigue, unexplained fevers, and weight loss. E/N/T: Negative for apparent hearing deficits, chronic nasal congestion, dental problems, and speech problems. RESPIRATORY: Negative for chronic cough, dyspnea, exposure to tuberculosis, and wheezing. GASTROINTESTINAL: Negative for abdominal pain, constipation, diarrhea, feeding/nutritional problems, and vomiting. GENITOURINARY: Positive for dysuria and increased urinary frequency. Physical Exam Vitals & Measurements T: 36.8 ?C(Temporal Artery) HR: 78(Peripheral) RR: 16 BP: 110/68 HT: 167.3 cm HT: 167.3 cm WT: 73.8 kg WT: 73.8 kg BMI: 26.37 GENERAL: The patient is well developed, well nourished, in no apparent distress. E/N/T: external auditory canals normal; Nose: normal nasal mucosa, septum, turbinates, and sinuses; Lips, Teeth and Gums: normal; Oropharynx: normal mucosa, palate, and posterior pharynx; RESPIRATORY: normal respiratory rate and pattern with no distress; normal breath sounds with no rales, rhonchi, wheezes or rubs; CARDIOVASCULAR: normal rate and rhythm without murmurs; normal S1 and S2 heart sounds with no S3, S4, rubs, or clicks;; GASTROINTESTINAL: normal bowel sounds; no masses or tenderness; no organomegaly no abdominal or inguinal hernia; LYMPHATIC: No enlargement of cervical nodes GENITOURINARY: No CVA tenderness on examination. Assessment/Plan 1. Dysuria (R30.0: Dysuria) Steve presents today with dysuria, in addition to painful sexual intercourse complaint. This has been ongoing for about a month. She notes improvement with OTC treatments; however, in the last week, her symptoms seemed to be more bothersome. Her urine in office has a small amount of white blood cells in it, so I will send it for culture and follow up with her once we have the results. She does note that she is sexually active, so I will send her urine for gonorrhea and chlamydia testing as well. I advised her that if everything comes back negative from this, she should schedule a visit with Dr. Moreno for further (more content not included)... Normal [facility] Ambulatory Visit Summaryon 0 04-04-2021 Ambulatory Visit Summary STEVE PEREZ :2000 Visit Date:04/04/2021 Ambulatory Visit Instructions Your Diagnosis Well adult exam Pediatric body mass index (BMI) of 85th percentile to less than 95th percentile for age Your Care Team Attending Physician Marry Mccollum MD Primary Care Physician - Marry Justin MD This Is Your Medications List carbonyl iron (Iron Chews) ethinyl estradiol-norethindro ne (Junel Fe 1.5/30 oral tablet) Procedures Performed None. Discharge Vitals Temperature (Temporal Artery) 36.8 ?C Heart Rate (Peripheral) 88 Respiratory Rate 20 Blood Pressure 100/68 Height 166.7 cm Height 166.7 cm Weight 78.5 kg Weight 78.5 kg BMI 28.25 What to do next You Need to Schedule the Following Appointments Follow Up with Margoth MALIK, Marry BAXTER When: Why: f/up in 1 year for 21 year old physical Where: Medications What How Much When Instructions Unchanged carbonyl iron (Iron Chews) Every day Unchanged ethinyl estradiol-norethindro ne ( oral tablet) Medications and Immunizations Administered Not Given influenza virus vaccine, inactivated, Parent Or Guardian Refuses Allergies amoxicillin (Hives) Problems Ongoing - Any problem that you are currently receiving treatment for. Acute otitis media, right Allergic rhinitis Pediatric body mass index (BMI) of 85th percentile to less than 95th percentile for age Well adult exam Education Materials Health Maintenance, Female Adopting a healthy lifestyle and getting preventive care are important in promoting health and wellness. Ask your health care provider about: ? The right schedule for you to have regular tests and exams. ? Things you can do on your own to prevent diseases and keep yourself healthy. What should I know about diet, weight, and exercise? Eat a healthy diet ? Eat a diet that includes plenty of vegetables, fruits, low-fat dairy products, and lean protein. ? Do not eat a lot of foods that are high in solid fats, added sugars, or sodium. Maintain a healthy weight Body mass index (BMI) is used to identify weight problems. It estimates body fat based on height and weight. Your health care provider can help determine your BMI and help you achieve or maintain a healthy weight. Get regular exercise Get regular exercise. This is one of the most important things you can do for your health. Most adults should: ? Exercise for at least 150 minutes each week. The exercise should increase your heart rate and make you sweat (moderate-intensity exercise). ? Do strengthening exercises at least twice a week. This is in addition to the moderate-intensity exercise. ? Spend less time sitting. Even light physical activity can be beneficial. Watch cholesterol and blood lipids Have your blood tested for lipids and cholesterol at 20 years of age, then have this test every 5 years. Have your cholesterol levels checked more often if: ? Your lipid or cholesterol levels are high. ? You are older than 40 years of age. ? You are at high risk for heart disease. What should I know about cancer screening? Depending on your health history and family history, you may need to have cancer screening at various ages. This may include screening for: ? Breast cancer. ? Cervical cancer. ? Colorectal cancer. ? Skin cancer. ? Lung cancer. What should I know about heart disease, diabetes, and high blood pressure? Blood pressure and heart disease ? High blood pressure causes heart disease and increases the risk of stroke. This is more likely to develop in people who have high blood pressure readings, are of descent, or are overweight. ? Have your blood pressure checked: ? Every 3?5 years if you are 18?39 years of age. ? Every year if you are 40 years old or older. Diabetes Have regular diabetes screenings. This checks your fasting blood sugar level. Have the screening done: ? Once every three years after age 40 if you are at a normal weight and have a low risk for diabetes. ? More often and at a younger age if you are overweight or have a high risk for diabetes. What should I know about preventing infection? Hepatitis B If you have a higher risk for hepatitis B, you should be screened for this virus. Talk with your health care provider to find out if you are at risk for hepatitis B infection. Hepatitis C Testing is recommended for: ? Everyone born from 1945 through 1965. ? Anyone with known risk factors for hepatitis C. Sexually transmitted infections (STIs) ? Get screened for STIs, including gonorrhea and chlamydia, if: ? You are sexually active and are younger than 24 years of age. ? You are older than 24 years of age and your health care provider tells you that you are at risk for this type of infection. ? Your sexual activity has changed since you were last screen (more content not included)... Normal [facility] Patient Educationon 04-04-19 Patient Education Obstetrics and Gynecology Health Maintenance, Female Adopting a healthy lifestyle and getting preventive care are important in promoting health and wellness. Ask your health care provider about: ? The right schedule for you to have regular tests and exams. ? Things you can do on your own to prevent diseases and keep yourself healthy. What should I know about diet, weight, and exercise? Eat a healthy diet ? Eat a diet that includes plenty of vegetables, fruits, low-fat dairy products, and lean protein. ? Do not eat a lot of foods that are high in solid fats, added sugars, or sodium. Maintain a healthy weight Body mass index (BMI) is used to identify weight problems. It estimates body fat based on height and weight. Your health care provider can help determine your BMI and help you achieve or maintain a healthy weight. Get regular exercise Get regular exercise. This is one of the most important things you can do for your health. Most adults should: ? Exercise for at least 150 minutes each week. The exercise should increase your heart rate and make you sweat (moderate-intensity exercise). ? Do strengthening exercises at least twice a week. This is in addition to the moderate-intensity exercise. ? Spend less time sitting. Even light physical activity can be beneficial. Watch cholesterol and blood lipids Have your blood tested for lipids and cholesterol at 20 years of age, then have this test every 5 years. Have your cholesterol levels checked more often if: ? Your lipid or cholesterol levels are high. ? You are older than 40 years of age. ? You are at high risk for heart disease. What should I know about cancer screening? Depending on your health history and family history, you may need to have cancer screening at various ages. This may include screening for: ? Breast cancer. ? Cervical cancer. ? Colorectal cancer. ? Skin cancer. ? Lung cancer. What should I know about heart disease, diabetes, and high blood pressure? Blood pressure and heart disease ? High blood pressure causes heart disease and increases the risk of stroke. This is more likely to develop in people who have high blood pressure readings, are of descent, or are overweight. ? Have your blood pressure checked: ? Every 3?5 years if you are 18?39 years of age. ? Every year if you are 40 years old or older. Diabetes Have regular diabetes screenings. This checks your fasting blood sugar level. Have the screening done: ? Once every three years after age 40 if you are at a normal weight and have a low risk for diabetes. ? More often and at a younger age if you are overweight or have a high risk for diabetes. What should I know about preventing infection? Hepatitis B If you have a higher risk for hepatitis B, you should be screened for this virus. Talk with your health care provider to find out if you are at risk for hepatitis B infection. Hepatitis C Testing is recommended for: ? Everyone born from 1945 through 1965. ? Anyone with known risk factors for hepatitis C. Sexually transmitted infections (STIs) ? Get screened for STIs, including gonorrhea and chlamydia, if: ? You are sexually active and are younger than 24 years of age. ? You are older than 24 years of age and your health care provider tells you that you are at risk for this type of infection. ? Your sexual activity has changed since you were last screened, and you are at increased risk for chlamydia or gonorrhea. Ask your health care provider if you are at risk. ? Ask your health care provider about whether you are at high risk for HIV. Your health care provider may recommend a prescription medicine to help prevent HIV infection. If you choose to take medicine to prevent HIV, you should first get tested for HIV. You should then be tested every 3 months for as long as you are taking the medicine. ? If you are about to stop having your period (premenopausal) and you may become , seek counseling before you get . ? Take 400 to 800 micrograms (mcg) of folic acid every day if you become . ? Ask for control (contraception) if you want to prevent . Osteoporosis and menopause Osteoporosis is a disease in which the bones lose minerals and strength with aging. This can result in bone fractures. If you are 65 years old or older, or if you are at risk for osteoporosis and fractures, ask your health care provider if you should: ? Be screened for bone loss. ? Take a calcium or vitamin D supplement to lower your risk of fractures. ? Be given hormone replacement therapy (HRT) to treat symptoms of menopause. Follow these instructions at home: Lifestyle ? Do not use any products that contain nicotine or tobacco, such as cigarettes, e-cigarettes, and chewing tobacco. If you need help quitting, ask your health care provider. ? Do not use street drugs. ? Do not share needles. ? Ask your heal (more content not included)... Normal [facility] Pediatrics Office/Clinic Not janny 04-04-2021 Pediatrics Office/Clinic Note Chief Complaint Patient in office with mother Alejandro for a well child exam/rp History of Present Illness Steve is an 20-year-old female who presents today for a well child encounter. She is accompanied by her mother. Visits to other Specialists: She is being seen for dental by Dr. Chay José at [facility]. She was referred to Dr. Jasvir Kessler for oral surgery in 04/2021. Caregiver's Questions/Concerns: The patient states that her right ear pain has returned. The patient is scheduled to meet with an oral surgeon because all 4 of her wisdom teeth are erupting and she thinks this may be related to her ear pain. The patient states that she is still taking Iron Chews daily. She is still taking Junel Fe 1.5/30 oral tablet. She states that she takes allergy medication. The patient states that she is allergic to AMOXICILLIN. She states that she had severe hives all over her body, to the extent of taking her to the emergency room and getting steroids and Benadryl. The patient states that she has not received her COVID-19 vaccine. She states that she submitted a vaccination exception. She states that she is not interested in receiving the influenza vaccine. Development Motor Skills Active with hobbies/sports: yes, 4H, grabiel fairs, clubs, hang out with her friends Keep up with other children: yes Outdoor activities: yes, hiking, and camping with her family Performs Chores: yes Social/Language skills Adheres to rules: yes Caring, supportive relationship with family: yes Has a best friend: yes Peer interaction: yes Performs school work: yes, taking college courses Reads for pleasure: yes Respect for authority: yes Shows independence: yes Shows ability to understand feelings of others: yes Shows self-confidence: yes Understands cause and effect: yes Sleep Generally, the child sleeps 8 hours at night. Media Screen time per day (TV, cell phone, and computer): 6 hours between school work, 2 hours for TV Nutrition Dairy products (amount and type per day): she does not drink milk Meals per day: 2, skips breakfast, but she does snack throughout the day Types of food: eats a wide variety of fruits, vegetables, dairy and meats Healthy body image: yes Good eating habits: yes Adequate voiding/stooling: yes Iron/vitamins, fluoride supplements: take iron supplement Education Current Level in School: 12th grade School attends: [employer] Recent grade reports: she gets good grades but has a lower grade in math, she has 22 credits for college Social Situation: Lives with: [facility] Tobacco smoke exposure: no Outside family support present: yes CONFIDENTIAL INTERVIEW: Confidentially statement made with patient. Patient endorses understanding that confidentiality will be broken only if patient is in danger in some way (ie. a danger to their self, others or someone is a danger to patient) Substance Abuse Tobacco Use: no Illicit Drug Use: no Alcohol Use: occasionally, with family Specialized and Fad Diets: no Behavioral Assessment Sexual Behavior Dating: Talking to a male, has had sex in the past with 1 partner and used protection. She is not currently sexually active. Abnormal Behavior Aggressive behavior: no, she has not been touched inappropriately Depression: no Thoughts of suicide: no Review of Systems PHQ Score Initial Depression Screen Score: 0 CONSTITUTIONAL: Negative for growth problems, fatigue, unexplained fevers, and weight loss. EYES: Negative for apparent vision problems, eye drainage, and lazy eye. E/N/T: Negative for apparent hearing deficits, chronic nasal congestion, dental problems, and speech problems. CARDIOVASCULAR: Negative for chest pain, cyanotic spells, edema, and poor exercise tolerance. RESPIRATORY: Negative for chronic cough, dyspnea, and wheezing. GASTROINTESTINAL: Negative for abdominal pain, constipation, diarrhea, feeding/nutritional problems, and vomiting. GENITOURINARY: Negative for dysuria, hematuria, difficulty voiding, or rashes/lesions of the external genitalia. MUSCULOSKELETAL: Negative for limb or joint pain, joint swelling, and gait abnormalities. INTEGUMENTARY: Negative for atopic dermatitis, atypical moles, pruritis, rashes, and skin lesions. NEUROLOGICAL: Negative for abnormal tone, developmental delays, syncope, headaches, and seizures. HEMATOLOGIC/LYMPHATIC : Negative for bleeding, excessive bruising, and lymphadenopathy. ENDOCRINE: Negative for abnormal growth or pubertal development, polyuria, and polydipsia. ALLERGIC/IMMUNOLOGIC: Negative for allergies, frequent illnesses, and urticaria. PSYCHIATRIC: Negative for behavioral or emotional problems. Physical Exam Vitals & Measurements T: 36.8 ?C(Temporal Artery) HR: 88(Peripheral) RR: 20 BP: 100/68 HT: 166.7 cm HT: 166.7 cm WT: 78.5 kg WT: 78.5 kg BMI: 28.25 GENERAL: The patient is well developed, well nourished, in no apparent distress. HEAD: The examinati (more content not included)... Normal [facility] Immunization Recordson 03-30 Immunization Records [id number] .00CD:127 Normal [facility] Immunization Recordson 03-02 Immunization Records [id number]. 00CD:127 Normal [facility] Pediatrics Office/Clinic Not janny 03-02-2021 Pediatrics Office/Clinic Note Chief Complaint Patient in office with mother for recheck ear infection/rp History of Present Illness Steve is an 20-year-old female here today for a follow-up of URI and right acute otitis media. She is accompanied by her mother. The patient reports that her right ear was feeling better after taking the course of antibiotics; however, 2-3 days ago she woke up with right ear pain. She states that the pain reoccurred approximately 5-6 days after she completed the course of cefdinir. She states that her rhinorrhea and congestion have improved and does not bother her as frequently. She states that she has a history of seasonal allergies. Review of Systems CONSTITUTIONAL: Negative for growth problems, fatigue, fevers, and weight loss. EYES: Negative for apparent vision problems, eye drainage, and lazy eye. E/N/T: Positive for recurrence of ear pain. Positive for nasal congestion. Usually takes an allergy pill in spring and fall. CARDIOVASCULAR: Negative for chest pain, cyanotic spells, edema, and poor exercise tolerance. RESPIRATORY: Negative for chronic cough, dyspnea, and wheezing. INTEGUMENTARY: Negative for atopic dermatitis, atypical moles, pruritis, rashes, and skin lesions. ALLERGIC/IMMUNOLOGIC: Negative for allergies Physical Exam Vitals & Measurements T: 36.8 ?C(Temporal Artery) HR: 80(Peripheral) RR: 18 BP: 120/72 HT: 169.5 cm HT: 169.5 cm WT: 80.9 kg WT: 80.9 kg BMI: 28.16 GENERAL: The patient is well developed, well nourished, in no apparent distress. Well hydrated. EYES: lids and conjunctiva are normal; pupils and irises are normal; funduscopic exam reveals red reflex present bilaterally; E/N/T: normal external auditory canals. TMs clear bilaterally with no signs of infection. Nose: mild nasal congestion; Lips, Teeth and Gums: normal; Oropharynx: Mild erythema of posterior pharynx. NECK: Neck is supple with full range of motion; RESPIRATORY: normal respiratory rate and pattern with no distress; normal breath sounds with no rales, rhonchi, wheezes or rubs; CARDIOVASCULAR: normal rate and rhythm without murmurs; normal S1 and S2 heart sounds with no S3, S4, rubs, or clicks;; LYMPHATIC: no enlargement of cervical nodes SKIN: No ulcerations, lesions or rashes are noted. NEUROLOGIC: Normal for age, grossly non-focal with normal gait and coordination. Assessment/Plan An 20-year-old female here today for a recheck of URI and right acute otitis media. She still has some nasal congestion despite finishing a course of cefdinir. I instructed her to try Zyrtec 1 time per day as they are moving into a new house and this could be environmental allergies. She is 20 years old; however, her family is planning on staying in the practice until she graduates from high school. I instructed her that she has to make a well-child check, so that we have one on file for her due to her not being seen for several years. The patient's mother is in agreement with this plan. 1. Acute otitis media, right (H66.91: Otitis media, unspecified, right ear) - Demonstrating improvement. 2. Allergic rhinitis (J30.9: Allergic rhinitis, unspecified) - Please start Zyrtec. ATTESTATION: Documentation services were performed after patient or guardian consented to allow Yan Kenrick Mckinney to record this visit. ROSSANA health and nutrition specialist and provider reviewed before signing. ROSSANA: Kodi Odell. Entered into [facility] by Nancy Patton. Follow-up With When Contact Information Margoth MALIK, Marry BAXTER Additional Instructions: make [facility] Problem List/Past Medical History Ongoing Acute otitis media, right Allergic rhinitis Historical No qualifying data Procedure/Surgical History None. Medications Iron Chews, Oral, Daily oral tablet Allergies amoxicillin (Hives) Social History Alcohol - No Risk, 03/02/2021 Tobacco - No Risk, 03/02/2021 Family History Hypertension: Grandparent. Immunizations Vaccine Date Status meningococcal conjugate vaccine 09/29/2020 Given meningococcal conjugate vaccine 09/29/2020 Recorded influenza virus vaccine, inactivated 12/16/2016 Recorded influenza virus vaccine, inactivated 12/15/2014 Recorded tetanus toxoid 04/05/2014 Recorded meningococcal conjugate vaccine 04/05/2014 Recorded influenza virus vaccine, inactivated 10/27/2013 Recorded influenza virus vaccine, inactivated 2012 Recorded human papillomavirus vaccine 06/24/2012 Recorded human papillomavirus vaccine 02/19/2012 Recorded human papillomavirus vaccine 12/20/2011 Recorded influenza virus vaccine, inactivated 12/20/2011 Recorded hepatitis A adult vaccine 04/04/2011 Recorded hepatitis A adult vaccine 09/25/2010 Recorded influenza virus vaccine, inactivated 01/10/2010 Recorded influenza virus vaccine, inactivated 12/02/2009 Recorded varicella virus vaccine 08/30/2008 Recorded poliovirus vaccine, inactivated 08/30/2008 Recorded measles/mumps/rubella virus vaccine 08/30/2008 Recorded dip (more content not included)... Normal [facility] Pediatrics Office/Clinic Not janny 02-18-2021 Pediatrics Office/Clinic Note Chief Complaint Pt in office today with Mom for sore throat and ear pain. Symptoms started Friday night. Pt has been taking OTC advill cold and sinus History of Present Illness Steve is an 20-year-old female who presents today for evaluation of a sore throat and ear pain. She is accompanied by her mother. Her symptoms started on Friday night, 02/11/2021. She has been taking [id number] Advil Cold and Sinus. Steve states that her throat was scratchy on Friday night, 02/11/2021. She thought it was from breathing through her mouth. On Friday morning, 02/12/2021, she woke up with pain while talking. She went to school and throughout the day, she felt better. He symptoms worsened on Friday night, 02/12/2021. On 02/13/2021, she did not feel well and her stomach was painful. She did not have much of an appetite. On 02/14/2021, she came home early from school and did not go to work. , 02/15/2021, she felt a little better during the day when she was using Advil Cold and Sinus. Steve states that her sinus pain has improved and she does not have pain with talking or opening her mouth. She reports having right ear pain. She denies fevers. Steve states that some of her friends are sick, but they all have the same symptoms. She states that her friend went to the doctor 2 days ago and tested negative for everything. She was given antibiotics, but she does not know what it was for. Steve states that she does not have any exposure to COVID or influenza. She states that she works at [employer] in [place]. Steve states that the worst symptom is her throat and ear pain. She states that Advil Cold and Sinus helps with her headaches and throat pain. She states that she has been eating without feeling sick. She states that she feels nauseous, but she has not vomited. She denies diarrhea. Steve states that she is coughing. Steve states that she cleans her ear after a shower. She states that she does not have anything stuck in her ear. She states that her ear feels like it is clogged. She denies dyspnea. Steve states that she is allergic to Amoxicillin. She states that she has hives and itching. She states that when she last experienced an allergic reaction to the amoxicillin, she had IV steroids and Benadryl. She did not receive epinephrine. Steve states that she takes an iron pill daily, control, and an allergy pill during the summer. She states that she takes Zyrtec in the summer. Review of Systems CONSTITUTIONAL: Negative for growth problems, fatigue, unexplained fevers, and weight loss. EYES: Negative for apparent vision problems, eye drainage, and lazy eye. E/N/T: Positive for sore throat and ear pain. Negative for apparent hearing deficits, chronic nasal congestion, dental problems, and speech problems. CARDIOVASCULAR: Negative for chest pain, cyanotic spells, edema, and poor exercise tolerance. RESPIRATORY: Negative for chronic cough, dyspnea, and wheezing. INTEGUMENTARY: Negative for atopic dermatitis, atypical moles, pruritis, rashes, and skin lesions. ALLERGIC/IMMUNOLOGIC: Negative for allergies NEURO: Positive for headaches Physical Exam Vitals & Measurements T: 36.5 ?C(Temporal Artery) HR: 92(Peripheral) RR: 18 BP: 120/62 HT: 169.0 cm HT: 169 cm WT: 80.6 kg WT: 80.6 kg BMI: 28.22 GENERAL: The patient is well developed, well nourished, in no apparent distress. Well hydrated. EYES: lids and conjunctiva are normal; pupils and irises are normal; funduscopic exam reveals red reflex present bilaterally; E/N/T: normal external auditory canals. Exquisite erythema of the right TM, especially in comparison to the left TM. There is a small amount of clear fluid behind the TM, but no purulent fluid present at this time. She had symptoms for 6 days with otalgia that has continued throughout. I feel that she has a viral illness. Nose: normal nasal mucosa, septum, turbinates, and sinuses; Lips, Teeth and Gums: normal; Oropharynx: Mild erythema of posterior pharynx. NECK: Neck is supple with full range of motion; RESPIRATORY: normal respiratory rate and pattern with no distress; normal breath sounds with no rales, rhonchi, wheezes or rubs; CARDIOVASCULAR: normal rate and rhythm without murmurs; normal S1 and S2 heart sounds with no S3, S4, rubs, or clicks;; LYMPHATIC: no enlargement of cervical nodes SKIN: No ulcerations, lesions or rashes are noted. NEUROLOGIC: Normal for age, grossly non-focal with normal gait and coordination. Assessment/Plan Steve is an 20-year-old female with 6 days of viral symptoms, now with evidence of developing right acute otitis media. We will start her on cefdinir due to her allergy to amoxicillin. Educated her and mother about possible allergy to cephalosporin and the importance of monitoring her first 2 doses. We will plan to recheck in 2 weeks. 1. Acute suppurative otitis media without spontaneous rupture of ear drum, right ear (H66.001: Acute suppurative otitis media (more content not included)... Normal [facility] Coding Summaryon 12-17-2018 Coding Summary CODING DATE: 12/17/2018 [facility] STATUS: Home PAYOR: Commercial Insurance ADMIT DX: REASON FOR VISIT DX: B35.1 Tinea unguium FINAL DX: PRINCIPAL: B35.1 Tinea unguium SECONDARY: Z79.899 Other custodial (current) drug therapy PYMT PROC APC STAT DESCRIPTION DOCTOR NAME DATE NOTE: The code number assigned matches the documented diagnosis and / or procedure in the patient's chart. However, the narrative phrase printed from the coding software may appear abbreviated, or result in slightly different terminology. Coded By: Ana Molina Date Saved: 12/17/2018 03:44 pm [facility] Provider Orderson 12-16-2018 Provider Orders [id number] .[id number] Normal [facility] [place] 12-15-2018 ALT [Catalytic activity/Vol] 14.0 U/L Normal 8.0-29.0 [facility] Comment on above: Performed By: #### 2 [id number] #### [facility] (DEFAULT) [address] [place] [address] Princess 12-15-2018 AST [Catalytic activity/Vol] 23 U/L Normal 14-37 [facility] Comment on above: Performed By: #### 2 [id number] #### [facility] (DEFAULT) [address] [place] [address] [employer] 12-15-2018 Gamma glutamyl transferase [Catalytic activity/Vol] 10.0 U/L Normal 8.0-23.0 [facility] Comment on above: Performed By: #### 2 [id number] #### [facility] (DEFAULT) [address] [place] [address] Vital Signs Date Time Vital Sign Value Performing Clinician Facility 02-23-2024 11:22-0500 Body height 167.6 cm [employer] Work Phone: [facility] 02-23-2024 11:22-0500 Body mass index (BMI) [Ratio] 28.15 kg/m2 [employer] Work Phone: [facility] 02-23-2024 11:22-0500 Body weight 79.11 kg [employer] Work Phone: [facility] 02-23-2024 11:22-0500 Diastolic blood pressure 62 mm[Hg] [employer] Work Phone: [facility] 02-23-2024 11:22-0500 Systolic blood pressure 100 mm[Hg] [employer] Work Phone: [facility] 11-08-2021 13:11-0400 [facility] 11-08-2021 13:11-0400 Body temperature 97.16 [degF] Marry Steuben [facility] 11-08-2021 13:11-0400 Diastolic blood pressure 58 mm[Hg] Marry Steuben [facility] 11-08-2021 13:11-0400 Heart rate 64 /min Marry Steuben [facility] 11-08-2021 13:11-0400 Respiratory rate 16 /min Marry Steuben [facility] 11-08-2021 13:11-0400 Systolic blood pressure 110 mm[Hg] Marry Steuben [facility] 10-30-2021 13:22-0400 Blood Pressure Location Pratibha Mil [facility] 10-30-2021 13:22-0400 Body temperature 97.34 [degF] Pratibha Mil [facility] 10-30-2021 13:22-0400 Diastolic blood pressure 72 mm[Hg] Pratibha Mil [facility] 10-30-2021 13:22-0400 Heart rate 78 /min Pratibha Mil [facility] 10-30-2021 13:22-0400 Respiratory rate 18 /min Pratibha Mil [facility] 10-30-2021 13:22-0400 Systolic blood pressure 108 mm[Hg] Pratibha Mil [facility] Encounters Encounter Date Encounter Type Care Provider Facility Start: 08-30-2024 End: 08-30-2024 Bamboo flowsheet Tirso Josh DO Work Phone: [facility] Start: 08-30-2024 End: 08-30-2024 Bamboo flowsheet Tirso Josh DO Work Phone: [facility] Start: 02-23-2024 End: 02-23-2024 Bamboo flowsheet Tirso Josh DO Work Phone: [facility] Start: 02-23-2024 End: 02-23-2024 Bamboo flowsheet Tirso Josh DO Work Phone: [facility] Start: 02-23-2024 End: 02-23-2024 Office outpatient visit 10 minutes Tirso Josh DO Work Phone: [facility] Comment on above: Yeast infection Start: 02-23-2024 End: 02-23-2024 ambulatory TIRSO JOSH Not Available Start: 07-01-2023 End: 07-01-2023 ambulatory TIRSO JOSH Not Available Start: 01-31-2022 End: 02-01-[address] TIRSO MORENO Facility: Start: 12-06-2021 End: 12-06-[address] TIRSO MORENO Facility: Start: 11-08-2021 End: 11-09-2021 ambulatory Marry Justin Facility:[facility] Start: 11-08-2021 End: 11-08-2021 Patient encounter procedure Marry Justin [facility] [place] Start: 10-30-2021 End: 10-31-2021 ambulatory Pratibha Jaeger Facility:[facility] Start: 10-30-2021 End: 10-30-2021 Patient encounter procedure Pratibha Jaeger [facility] [place] Start: 10-29-2021 End: 10-30-2021 ambulatory Pratibha Jaeger Facility[place] Start: 10-23-2021 End: 10-24-2021 ambulatory Pratibha Jaeger Facility[place] Start: 04-04-2021 ambulatory Pratibha Jaeger Facility:[facility] Start: 04-04-2021 End: 04-05-2021 ambulatory Marry Marry [facility] [place] Facility:[facility] [place] Start: 03-02-2021 End: 03-03-2021 ambulatory Marry Marry [facility] [place] Facility:[facility] [place] Start: 03-01-2021 ambulatory Pratibha Jaeger Facility:[facility] Start: 02-16-2021 End: 02-17-2021 ambulatory Marry Marry [facility] [place] Facility:[facility] Start: 02-15-2021 ambulatory Pratibha Jaeger Facility:[facility] Procedures Date Procedure Procedure Detail Performing Clinician None (qualifier value) Pratibha Jaeger Plan of Treatment Date Care Activity Detail Author Start: 10-11-2024 Influenza vaccination Influenza Vacc ine (#1) [facility] Start: 08-30-2024 End: 08-30-2024 Patient encounter procedure [facility] Comment on above: Arrived Start: 02-23-2024 End: 02-23-2024 Patient encounter procedure 02/23/2024 11:00 AM EST Office Visit [facility] [address] [place] [address] Tirso Moreno, [address] [place] [address] Arrived [facility] Comment on above: Arrived Start: 10-12-2023 Influenza vaccination Influenza Vacc ine (#1) [facility] CHLAMYDIA TRACHOMATI S (GENITO/STI) CHLAMYDIA TRACHOMATIS (GENITO/STI) Lab Routine Yeast infection Ordered: 02/23/2024 [facility] Comment on above: Ordered: 02/23/2024 Neisseria gonorrhoea e DNA [Presence] in Unspecified specimen by LOUIE with probe detection Neisseria gonorrhea DNA probe, direct Lab Routine Yeast infection Ordered: 02/23/2024 [facility] Comment on above: Ordered: 02/23/2024 SURESWAB(R) ADVANCED VAGINITIS PLUS, TMA SURESWAB(R) ADVANCED VAGINITIS PLUS, TMA Pathology and Cytology Routine Yeast infection Ordered: 02/23/2024 [facility] Work Phone: Comment on above: Ordered: 02/23/2024 Immunizations Immunization Date Immunization Notes Care Provider [facility] 09-29-2020 meningococcal ACWY vaccine, unspecified formulation Pratibha Jaeger [facility] [place] 09-29-2020 meningococcal oligosaccharide (groups A, C, Y and W-135) diphtheria toxoid conjugate vaccine (MCV4O) Pratibha Jaeger [facility] [place] 12-16-2016 influenza virus vaccine, unspecified formulation Pratibha Jaeger [facility] 12-16-2016 influenza, injectabl e, quadrivalent, preservative free Tirso Josh DO Work Phone: [facility] 12-15-2014 influenza virus vaccine, unspecified formulation Pratibha Jaeger [facility] [place] 12-15-2014 influenza, seasonal, injectable, preservative free Tirso Josh DO Work Phone: [facility] 04-05-2014 meningococcal ACWY vaccine, unspecified formulation Pratibhasweta Jaeger [facility] [place] 04-05-2014 meningococcal polysaccharide (groups A, C, Y and W-135) diphtheria toxoid conjugate vaccine (MCV4P) Tirso Josh DO Work Phone: [facility] 04-05-2014 tetanus toxoid, redu candace diphtheria toxoid, and acellular pertussis vaccine, adsorbed Tirso Josh DO Work Phone: [facility] 04-05-2014 tetanus toxoid, unspecified formulation Pratibha Mil [facility] 10-27-2013 influenza virus vaccine, unspecified formulation Pratibha Jaeger [facility] 10-27-2013 influenza, live, intranasal, quadrivalent Tirso Josh DO Work Phone: [facility] 2012 influenza virus vaccine, live, attenuated, for intranasal use Tirso Josh DO Work Phone: [facility] 2012 influenza virus vaccine, unspecified formulation Pratibhasweta Jaeger [facility] 06-24-2012 HPV, unspecified formulation Pratibha Jaeger [facility] 06-24-2012 human papilloma viru s vaccine, quadrivalent Tirso Josh DO Work Phone: [facility] 02-19-2012 HPV, unspecified formulation Pratibha Jaeger [facility] 02-19-2012 human papilloma viru s vaccine, quadrivalent Tirso Josh DO Work Phone: [facility] 12-20-2011 HPV, unspecified formulation Pratibha Jaeger [facility] 12-20-2011 human papilloma viru s vaccine, quadrivalent Tirso Josh DO Work Phone: [facility] 12-20-2011 influenza virus vaccine, unspecified formulation Pratibhasweta Jaeger [facility] 12-20-2011 influenza, seasonal, injectable, preservative free Itrso Josh DO Work Phone: [facility] 04-04-2011 hepatitis A vaccine, adult dosage Pratibhasweta Jaeger [facility] 04-04-2011 hepatitis A vaccine, pediatric/adolescent dosage, 2 dose schedule Tirso Josh DO Work Phone: [facility] 09-25-2010 hepatitis A vaccine, adult dosage Pratibha Mil [facility] 09-25-2010 hepatitis A vaccine, pediatric/adolescent dosage, 2 dose schedule Tirso Josh DO Work Phone: [facility] 01-10-2010 influenza virus vaccine, live, attenuated, for intranasal use Tirso Josh DO Work Phone: [facility] 01-10-2010 influenza virus vaccine, unspecified formulation Pratibhasweta Jaeger [facility] 12-08-2009 influenza virus vaccine, live, attenuated, for intranasal use Tirso Josh DO Work Phone: [facility] 12-02-2009 influenza virus vaccine, unspecified formulation Pratibhasweta Jaeger [facility] 08-30-2008 diphtheria, tetanus toxoids and acellular pertussis vaccine Pratibha Mil [facility] 08-30-2008 diphtheria, tetanus toxoids and acellular pertussis vaccine, unspecified formulation Tiros Josh DO Work Phone: [facility] 08-30-2008 measles, mumps and rubella virus vaccine Pratibha Mil [facility] 08-30-2008 poliovirus vaccine, inactivated Tirso Josh DO Work Phone: [facility] 08-30-2008 poliovirus vaccine, unspecified formulation Pratibha Mil [facility] 08-30-2008 varicella virus vaccine Pratibha Mil [facility] 01-13-2007 influenza virus vaccine, unspecified formulation Pratibhasweta Jaeger [facility] 01-13-2007 influenza, seasonal, injectable Tirso Josh DO Work Phone: [facility] 01-31-2005 influenza virus vaccine, unspecified formulation Pratibha Jaeger [facility] [place] 01-31-2005 influenza virus vaccine, whole virus Tirso Josh DO Work Phone: [facility] 01-01-2005 influenza virus vaccine, unspecified formulation Pratibhasweta Jaeger [facility] 01-01-2005 influenza virus vaccine, whole virus Tirso Josh DO Work Phone: [facility] 06-26-2004 pneumococcal conjuga te vaccine, 13 valent Pratibha Jaeger [facility] 06-26-2004 pneumococcal conjuga te vaccine, 7 valent Tirso Josh DO Work Phone: [facility] 03-27-2004 diphtheria, tetanus toxoids and acellular pertussis vaccine Pratibhasweta Jaeger [facility] 03-27-2004 haemophilus influenz ae type b vaccine, PRP-OMP conjugate Pratibha Jaeger [facility] 03-27-2004 haemophilus influenz ae type b vaccine, PRP-T conjugate Tirso Josh DO Work Phone: [facility] 03-27-2004 pneumococcal conjuga te vaccine, 13 valent Pratibha Jaeger [facility] 03-27-2004 pneumococcal conjuga te vaccine, 7 valent Tirso Josh DO Work Phone: [facility] 12-20-2003 measles, mumps and rubella virus vaccine Pratibhasweta Jaeger [facility] [place] 12-20-2003 varicella virus vaccine Pratibhasweta Jaeger [facility] 06-21-2003 diphtheria, tetanus toxoids and acellular pertussis vaccine Pratibha Mil [facility] 06-21-2003 DTaP-hepatitis B and poliovirus vaccine Tirso Josh DO Work Phone: [facility] 06-21-2003 haemophilus influenz ae type b vaccine, PRP-OMP conjugate Pratibha Jaeger [facility] 06-21-2003 haemophilus influenz ae type b vaccine, PRP-T conjugate Tirso Josh DO Work Phone: [facility] 06-21-2003 hepatitis B vaccine, pediatric or pediatric/adolescent dosage Pratibhasweta Jaeger [facility] 06-21-2003 pneumococcal conjuga te vaccine, 13 valent Pratibha Jaeger [facility] 06-21-2003 pneumococcal conjuga te vaccine, 7 valent Tirso Josh DO Work Phone: [facility] 06-21-2003 poliovirus vaccine, unspecified formulation Pratibha Jaeger [facility] 04-15-2003 diphtheria, tetanus toxoids and acellular pertussis vaccine Pratibha Jaeger [facility] 04-15-2003 diphtheria, tetanus toxoids and acellular pertussis vaccine, unspecified formulation Tirso Josh DO Work Phone: [facility] 04-15-2003 haemophilus influenz ae type b vaccine, conjugate unspecified formulation Tirso Josh DO Work Phone: [facility] 04-15-2003 haemophilus influenz ae type b vaccine, PRP-OMP conjugate Pratibha Laley [facility] 04-15-2003 poliovirus vaccine, inactivated Tirso Josh DO Work Phone: [facility] 04-15-2003 poliovirus vaccine, unspecified formulation Pratibha Jaeger [facility] 02-14-2003 diphtheria, tetanus toxoids and acellular pertussis vaccine Pratibha Jaeger [facility] 02-14-2003 DTaP-hepatitis B and poliovirus vaccine Tirso Josh DO Work Phone: [facility] 02-14-2003 haemophilus influenz ae type b vaccine, conjugate unspecified formulation Tirso Josh DO Work Phone: [facility] 02-14-2003 haemophilus influenz ae type b vaccine, PRP-OMP conjugate Pratibha Jaeger [facility] 02-14-2003 hepatitis B vaccine, pediatric or pediatric/adolescent dosage Pratibha Jaeger [facility] 02-14-2003 pneumococcal conjuga te vaccine, 13 valent Pratibha Jaeger [facility] 02-14-2003 pneumococcal conjuga te vaccine, 7 valent Tirsojocelin Joo DO Work Phone: [facility] 02-14-2003 poliovirus vaccine, unspecified formulation Pratibha Jaeger [facility] 2002 hepatitis B vaccine, pediatric or pediatric/adolescent dosage Pratibha Jaeger [facility] NEGATED: Highlighted row has not occurred!11-08-2021 influenza virus vaccine, unspecified formulation Marry Justin [facility] NEGATED: Highlighted row has not occurred!04-04-2021 influenza virus vaccine, unspecified formulation Pratibha Jaeger [facility] Payers Date Payer Category Payer Private Health Insurance [id number] 2022 Private Health Insurance [id number] 2021 Unknown [id number] 2002 Unknown [id number] 2.16.8 [id number] 2002 Unknown [id number] 2.16.8 [id number] 2002 Unknown [id number] 2.16.8 [id number] 2002 Unknown [id number] 2.16.8 [id number] 2002 Unknown [id number] 2.16.8 [id number] 2002 Unknown [id number] 2.16.8 [id number] 2002 Unknown [id number] 2.16.8 [id number] 2002 Unknown [id number] 2.16.8 [id number] 2002 Unknown [id number] 2.16.8 [id number] 2002 Unknown [id number] 2.16.8 [id number] 2002 Unknown [id number] 2.16.8 [id number] 2002 Unknown [id number] 2.16.84 [id number] 2002 Unknown [id number] 2.16.84 [id number] 2002 Unknown [id number] 2.16.84 [id number] 1977 Unknown [id number] 2.16.84 [id number] 1959 Unknown [id number] Social History Date Type Detail Facility Start: 10-30-2021 Tobacco smoking status Never s moked tobacco (finding) [facility] [place] Tobacco smoking status Never [facility] [place] Start: 08-18-2022 End: 08-19-2022 Sex Assigned At Female [facility] [place] Start: 11-27-2022 Tobacco smoking stat [facility] Ex-smoker [facility] History of tobacco use Current smoker [facility] History of tobacco use Cigarette Smoker [facility] Start: 11-27-2022 Tobacco use and exposure Smokeless tobacco non-user [facility] Start: 07-01-2023 End: 02-23-2024 Alcoholic beverage intake Lifetime non-drinker (finding) [facility] Start: 08-18-2022 End: 08-19-2022 History of Social function [facility] Within the last year , have you been afraid of your partner or ex-partner? No [facility] Are you now , , , , never or living with a partner? Never [facility] How often to you hav e a drink containing alcohol? Never [facility] Do you feel stress - tense, restless, nervous, or anxious, or unable to sleep at night because your mind is troubled all the time - these days [OSQ] To some extent [facility] (I/We) worried wheth er (my/our) food would run out before (I/we) got money to buy more. Never true [facility] Start: 2002 Sex assigned at Not on file [facility] Functional Status Date Assessment Result Facility 11-08-2021 Functional Status N/A [facility] [place] 10-30-2021 Functional Status N/A [facility] [place] History of Present illness Narrative 02-23-2024 Lizeth Sosa LPN - 02/23/2024 11:00 AM EST Note Date & Type Note Facility 02-23-2024 History of Presen t illness Narrative Reason for Appointment: Patient ID: Steve Perez is a 23 y.o. female who presents for Vaginitis/Bacterial Vaginosis Patient presents today for Consult appointment. MEDICATIONS Current Outpatient Medications Medication Instructions ferrous sulfate 325 mg, Daily with breakfast Magnesium 400 mg, Daily norethindrone-ethinyl estradiol (03/01) 1-20 MG-MCG tablet 1 tablet, Daily ALLERGIES Allergies Allergen Reactions Amoxicillin Hives Penicillins Unknown PROBLEMS Active Ambulatory Problems Diagnosis Date Noted Irregular menstrual cycle 08/15/2022 Pain in female genitalia on intercourse 08/15/2022 Pelvic pain 08/15/2022 Rash 08/15/2022 Allergic rhinitis 08/19/2022 Resolved Ambulatory Problems Diagnosis Date Noted No Resolved Ambulatory Problems Past Medical History: Diagnosis Date Allergic Menorrhagia Oral contraceptive use HISTORY PAST MEDICAL HISTORY SOCIAL HISTORY Past Medical History: Diagnosis Date Allergic Menorrhagia Oral contraceptive use Social History Tobacco Use Smoking status: Former Types: Cigarettes Smokeless tobacco: Never Vaping Use Vaping status: Unknown Substance Use Topics Alcohol use: Never Drug use: Never FAMILY HISTORY Family History Problem Relation Name Age of Onset Asthma Mother alejandro Asthma Brother romy SURGICAL HISTORY Past Surgical History: Procedure Laterality Date WISDOM TOOTH EXTRACTION 2021 REVIEW OF SYSTEMS Review of Systems: Review of Systems Genitourinary: Positive for vaginal discharge. All other systems reviewed and are negative. OBJECTIVE Objective: Physical Exam Constitutional: Appearance: Normal appearance. She is well-developed. Genitourinary: Vulva normal. Cardiovascular: Rate and Rhythm: Normal rate and regular rhythm. Pulmonary: Effort: Pulmonary effort is normal. Breath sounds: Normal breath sounds. Abdominal: General: Bowel sounds are normal. There is no distension. Palpations: Abdomen is soft. Tenderness: There is no abdominal tenderness. There is no guarding or rebound. Musculoskeletal: General: No swelling. Normal range of motion. Right lower leg: No edema. Left lower leg: No edema. Neurological: Mental Status: She is alert and oriented to person, place, and time. Skin: General: Skin is warm and dry. Psychiatric: Mood and Affect: Mood normal. Behavior: Behavior normal. Vitals and nursing note reviewed. 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 Vitals: Estimated body mass index is 28.15 kg/m as calculated from the following: Height as of this encounter: 5' 6 . Weight as of this encounter: 174 lb 6.4 oz. BP: 100/62 Patient's last menstrual period was 02/22/2024. ASSESSMENT & PLAN ICD-10-CM 1. Yeast infection B37.9 SURESWAB(R) ADVANCED VAGINITIS PLUS, TMA CHLAMYDIA TRACHOMATIS (GENITO/STI) Neisseria gonorrhea DNA probe, direct Patient presents today for recurrent yeast infections. Vaginal cultures obtained and sent to reference lab. Prescription for Xanax written on prescription pad for patient to have filled. Patient scheduled in August for Pap. Documented by Lizeth Sosa LPN on behalf of: Tirso Moreno DO documented in this encounter [facility] Hospital Discharge instructions 10-30-2021 Note Date & Type Note Facility 10-30-2021 Hospital Discharg e instructions Follow Up Care 10/30/2021 14:05:12 With:Margoth MALIK, Marry BAXTER Address: When: Unknown Comments:Confirm next [facility] [facility] [place] [facility] Discharge instructions 10-30-2021 Note Date & Type Note Facility 10-30-2021 Hospital Discharg e instructions Patient Education 10/30/2021 14:02:50 Dysuria Dysuria Dysuria is pain or discomfort while urinating. The pain or discomfort may be felt in the part of your body that drains urine from the bladder (urethra) or in the surrounding tissue of the genitals. The pain may also be felt in the groin area, lower abdomen, or lower back. You may have to urinate frequently or have the sudden feeling that you have to urinate (urgency). Dysuria can affect both men and women, but it is more common in women. Dysuria can be caused by many different things, including: Urinary tract infection. Kidney stones or bladder stones. Certain sexually transmitted infections (STIs), such as chlamydia. Dehydration. Inflammation of the tissues of the vagina. Use of certain medicines. Use of certain soaps or scented products that cause irritation. Follow these instructions at home: General instructions Watch your condition for any changes. Urinate often. Avoid holding urine for long periods of time. After a bowel movement or urination, women should cleanse from front to back, using each tissue only once. Urinate after sexual intercourse. Keep all follow-up visits as told by your health care provider. This is important. If you had any tests done to find the cause of dysuria, it is up to you to get your test results. Ask your health care provider, or the department that is doing the test, when your results will be ready. Eating and drinking Drink enough fluid to keep your urine pale yellow. Avoid caffeine, tea, and alcohol. They can irritate the bladder and make dysuria worse. In men, alcohol may irritate the prostate. Medicines Take [id number] and prescription medicines only as told by your health care provider. If you were prescribed an antibiotic medicine, take it as told by your health care provider. Do not stop taking the antibiotic even if you start to feel better. Contact a health care provider if: You have a fever. You develop pain in your back or sides. You have nausea or vomiting. You have blood in your urine. You are not urinating as often as you usually do. Get help right away if: Your pain is severe and not relieved with medicines. You cannot eat or drink without vomiting. You are confused. You have a rapid heartbeat while at rest. You have shaking or chills. You feel extremely weak. Summary Dysuria is pain or discomfort while urinating. Many different conditions can lead to dysuria. If you have dysuria, you may have to urinate frequently or have the sudden feeling that you have to urinate (urgency). Watch your condition for any changes. Keep all follow-up visits as told by your health care provider. Make sure that you urinate often and drink enough fluid to keep your urine pale yellow. This information is not intended to replace advice given to you by your health care provider. Make sure you discuss any questions you have with your health care provider. Document Released: 10/25/2004 Document Revised: 01/09/2018 Document Reviewed: 11/13/2017 [employer] Patient Education 2020 [email or web address] Follow Up Care 10/23/2021 14:00:00 With:Marry Justin MD Address: When:Within 1 Week(s) Comments:recheck dysuria [facility] [place] Evaluation + Plan note Note Date & Type Note Facility Evaluation + Plan note Future Appointments Appointment Date:11/08/2021 01:20:00 PM Scheduled Provider:Marry Justin MD Location:[facility] Appointment Type:Peds OV 10 [facility] [place] Evaluation note Note Date & Type Note Facility Evaluation note Diagnosis Yeast infection documented in this encounter [facility] Hospital course Narrative Note Date & Type Note Facility Hospital course Narrative No data available for this section [facility] [place] Progress note Note Date & Type Note Facility Progress note No data available for this section [facility] [place] Summary Purpose Family History No Family History Records FoundNo Family History Records FoundNo Family History Records FoundNo Family History Records Found Advance Directives No Advanced Directives Records FoundNo Advanced Directives Records FoundNo Advanced Directives Records FoundNo Advanced Directives Records Found Additional Source Comments INFORMATION SOURCE (unrecogn ized section and content) DATE CREATED AUTHOR 12/17/2018 [facility] DATE CREATED AUTHOR AUTHOR'S ORGANIZ ATION 11/16/2021 [facility] DATE CREATED AUTHOR AUTHOR'S ORGANIZ ATION 02/08/2022 [facility] DATE CREATED AUTHOR AUTHOR'S ORGANIZ ATION 02/26/[address] [facility] EPIC Care Team (unrecognized sect ion and content) Business Development Relationship Specialty Start Date End Date Padmini Simmons MD [address] [address] PCP - General Family Medicine 08/15/22 Business Development Relationship Specialty Start Date End Date Padmini Simmons MD 112 [facility] [address] [place] [address] PCP - General Family Medicine 08/15/22 Business Development Relationship Specialty Start Date End Date Padmini Simmons MD 112 [facility] [address] [place] [address] PCP - General Family Medicine 08/15/22 Reason for Visit (unrecogniz ed section and content) Reason Comments Vaginitis/Bacterial Vaginosis FOR RECORDS PERTAINING TO PATIENTS WHO ARE OR HAVE BEEN ENROLLED IN A CHEMICAL DEPENDENCY/SUBSTANCEABUSE PROGRAM, SOME INFORMATION MAY BE OMITTED. This clinical summary was aggregated from multiple sources. Caution should be exercised in using it in the provision of clinical care. This summary normalizes information from multiple sources, and as a consequence, information in this document may materially change the coding, format and clinical context of patient data. In addition, data may be omitted in some cases. CLINICAL DECISIONS SHOULD BE BASED ON THE PRIMARY CLINICAL RECORDS. [email or web address] provides no warranty or guarantee of the accuracy or completeness of information in this document.
[2024-09-02 17:08] LABS: Age Gdln ACOG Testing Note (.); IGP, rfx Aptima HPV ASCU Note (.)
== END 2024-08-30 19:38 | disposition home or self-care (01) ==
LOC: LAB 19:37
PROVIDERS: PCP Family Medicine; Visit Provider Obstetrics & Gynecology
DX: Z01.419 Encounter for gynecological examination (general) (routine) without abnormal findings (principal)
CPT/HCPCS: 88175